=== PATIENT | male | born 1990 | race Caucasian/White ===

== ENCOUNTER 2022-05-15 01:41 | Inpatient (IN) | payer MEDICAID, SELFPAY ==
[2022-05-15] VITALS (37 sets, daily range): BP systolic 98–201; BP diastolic 48–96; PULSE 86–177; RESP 18–40; TEMP 34.8–38.9; O2SAT 82–999; BMI 24.6
--- NOTE | 2022-05-15 | ECG_ITS ---
Test Reason : sedation Blood Pressure : / mmHG Vent. Rate : 115 BPM Atrial Rate : 115 BPM P-R Int : 134 ms QRS Dur : 094 ms QT Int : 336 ms P-R-T Axes : 054 055 038 degrees QTc Int : 464 ms Sinus tachycardia Otherwise normal ECG No previous ECGs available Referred By: Anand Larson Electronically Signed By:ROBIN SALMON MD
--- NOTE | 2022-05-15 | ECG_ITS ---
Test Reason : st depression Blood Pressure : / mmHG Vent. Rate : 096 BPM Atrial Rate : 096 BPM P-R Int : 142 ms QRS Dur : 092 ms QT Int : 356 ms P-R-T Axes : 059 065 044 degrees QTc Int : 449 ms Normal sinus rhythm Normal ECG When compared with ECG of 15-MAY-2022 04:57, No significant change was found Referred By: Thu Lubin Electronically Signed By:ROBIN SALMON MD
--- NOTE | ~2022-05-15 | XR_ITS ---
EXAMINATION: XR CHEST CLINICAL INFORMATION: Low oxygen COMPARISON: None TECHNIQUE: Frontal view of the chest was obtained. FINDINGS: Lung volumes are symmetric. There is extensive consolidation throughout much of the right lung. Additional milder heterogeneous consolidation is present in the mid to upper left lung. There is relative sparing of the superior lung apices. No evidence of pneumothorax or pleural effusion. The cardiomediastinal contour is unremarkable. No acute osseous findings are seen. XR/XR chest 1V IMPRESSION: Bilateral airspace opacities, more extensive on the right than the left. Differential considerations include multifocal pneumonia, asymmetric edema, or extensive aspiration in the proper clinical setting.
--- NOTE | ~2022-05-15 | XR_ITS ---
EXAMINATION: XR CHEST CLINICAL INFORMATION: Endotracheal tube placement COMPARISON: None TECHNIQUE: Frontal view of the chest was obtained. FINDINGS: The endotracheal tube terminates 4 cm above the eleazar. The enteric tube extends into the stomach. The lungs are well expanded. Bilateral airspace opacities are present, right greater than left. No significant pleural effusion. No pneumothorax. The cardiomediastinal silhouette is within normal limits. XR/XR chest 1V IMPRESSION: 1. Endotracheal tube terminating 4 cm above the eleazar. 2. Bilateral airspace opacities, right greater than left. This is concerning for pneumonia.
--- NOTE | ~2022-05-15 | CT_ITS ---
EXAMINATION: CT HEAD WITHOUT CONTRAST CLINICAL INFORMATION: Unresponsiveness. COMPARISON: None TECHNIQUE: Contiguous axial imaging was performed from the skull base to vertex without intravenous administration of contrast. This CT examination was performed using dose optimization techniques as appropriate, variously including the following: *Automated exposure control *Adjustment of mA and/or kV according to patient size (this includes techniques or standardized protocols for targeted exams where dose is matched to indication/reason for exam; i.e. extremities or head) *Use of iterative reconstruction technique DLP: 637 mGy-cm FINDINGS: No intracranial hemorrhage, tumors or acute infarcts noted. The ventricles and sulci are normal in size and configuration. No focal parenchymal lesions or abnormal extra-axial fluid collections. Normal appearance of the orbits and globes. Mild opacification of scattered ethmoid air cells within expected limits of physiologic variation. No mastoid or middle ear cavity effusions identified. CT/CT head/brain wo IV con IMPRESSION: Normal unenhanced CT the head.
--- NOTE | ~2022-05-15 | XR_ITS ---
EXAMINATION: XR CHEST CLINICAL INFORMATION: Central line placement COMPARISON: Chest x-ray 05/15/2022 TECHNIQUE: Frontal portable view of the chest was obtained. 2:40 PM FINDINGS: Tubes and lines: 1. Endotracheal tube catheter tip 5 cm above the eleazar. 2. Left IJ catheter tip at caval atrial junction. 3. Nasogastric tube tip in stomach. Persistent patchy bilateral airspace opacities more extensive in the right lung than the left lung. No change since prior chest x-ray. No pneumothorax. No pleural effusion. XR/XR chest 1V IMPRESSION: 1. Endotracheal tube catheter tip 5 cm above the eleazar. 2. Left IJ catheter tip at caval atrial junction. 3. Nasogastric tube tip in stomach. 4. Persistent bilateral airspace disease.
[2022-05-15] MEDS: Haloperidol Lactate 5 MG/ML VIAL 10 MG IM (01:44)
[2022-05-15] MEDS: Midazolam HCl/PF 2 MG/2 ML VIAL 4 MG IM (01:44)
[2022-05-15] MEDS: diphenhydrAMINE HCL 50 MG/ML VIAL IM (01:44)
--- NOTE | 2022-05-15 02:39 | ED_ITS ---
HPI - Overdose General Chief Complaint: Overdose Stated Complaint: od Time Seen by Provider: 05/15/22 01:43 Source: EMS Mode of arrival: EMS Limitations: altered mental status History of Present Illness HPI Narrative: 31-year-old male initially presented as Samuel Butt who was found unresponsive on a sidewalk by police. According to the paramedics, initially the patient was given intranasal Narcan 8 mg and his respirations were assisted with a bag-valve mask. The pain she had in eventually woke up but was extremely agitated, he was unable to talk, he was fighting against the police and the paramedics. The pat ient had to be restrained and handcuffed to the stretcher for transport. The patient was bleeding from his mouth and was spitting frothy blood. When the patient arrived in the emergency department he was extremely agitated, he was nonverbal, he was fighting against the restraints. He was transferred to emergency department stretcher and placed in restraints. He was medicated with Haldol 50 mg, Benadryl 50 mg and Versed 4 mg IM with only minimal improvement of his agitation. The patient required a 2nd dose of these 3 medications again with minimal improvement. The patient was then noted to be hypoxic with O2 saturations in the 70% range. Patient was initially treated with nasal cannula an OxyMask however they were unable to get his O2 saturation above 85%. He was then tried on high-flow oxygen via nasal cannula but again we were unable to get his oxygen level above 85%. The patient became more agitated. He was then given ketamine 300 mg IM. He was moved into the resuscitation area and with then able to establish an IV. He was given etomidate 20 mg IV and rocuronium 40 mg IV. The patient was very difficult intubate secondary to significant amount of secretions in his p osterior pharynx. There are multiple unsuccessful attempts by me. The crystal gazer, was eventually able to intubate the patient with a 7.0 endotracheal tube, 24 at the lip. Patient was then placed on a propofol drip. His one-view chest x-ray is consistent with bilateral aspiration pneumonia, he was treated with Zosyn 4.5 g IV. Patient's lactic acid was 4.0 in the patient's CK was elevated at 1080. Patient was ordered to get a 30 cc per kg bolus of lactated Ringer's. Related Data Allergies Allergy/AdvReac Type Severity Reaction Status Date / Time No Known Allergies Allergy Unverified 05/15/22 01:43 Review of Systems Review of Systems: Yes Unobtainable due to mental status [facility] Past Medical History [facility] Narrative: Past medical, surgical and social history are unobtainable due the patient's altered mental status Social History Social History Advance Directives: No Physical Exam Vital Signs: Vital Signs: Last Vital Signs Resp 30 H 05/15/22 01:50 FiO2 100 05/15/22 03:45 BMI result Body Mass Index 24.6 Const: Other: Agitated male patient, patient has bleeding from his mouth from a tongue injury, he is not responding to verbal commands, he is trying to get off the stretcher. HEENT: Other: Patient has blood coming from his mouth, he is spitting and coughing Ears: external ears normal General nose exam: Normal external nose present Face and sinus: Yes normal facial exam Mouth: other (Blood coming from his mouth) Throat: Yes posterior oropharynx normal Eyes: General: appearance normal, both eyes and all related structures Neck: Neck: Yes normal visual inspection, Yes no lymphadenopathy, Yes trachea midline and Yes supple Chest: Chest palpation & inspection: normal inspection of the chest and normal palpation of entire chest wall Resp: Other: Diffuse rhonchi and rales right greater than left Cardio: Rate: regular rate Rhythm: regular rhythm Heart sounds: S1 normal heart sound present, S2 normal heart sound present and no murmurs GI: Inspection: Yes normal to inspection Palpation (GI): Soft to palpation, nontender and no guarding Auscultation: normal bowel sounds : General: Yes no CVA tenderness Back/Spine/Pelvis: Back: no CVA tenderness Neuro: Other: Patient is agitated, not responding to verbal commands. Extrem: Other: Moves all extremities Psych: Other: Extremely agitated, not responding to verbal stimuli Course Course Course Narrative: 31-year-old male patient found unresponsive on the sidewalk by police, patient needed bag-valve mask assistance with his respirations and did wake up after receiving intranasal Narcan 4 mg x2 doses. Patient was extremely agitated and was altered and required physical and chemical restraints x2 here in the emergency department. Patient was found to be hypoxic with O2 saturations on room air a 70%. The patient chest x-ray revealed bilateral infiltrates concerning for aspiration pneumonia. Attempted to treat the patient with high- flow oxygen via nasal cannula and was unable to improve the patient's O2 saturation above 85%. Therefore the patient was intubated and placed on a v entilator. Patient was treated with Zosyn 4.5 g IV. His lactic acid was 4.0 in his CK was elevated at 1080 and he was ordered to get lactated Ringer's 30 cc per mL bolus. Initially we were unable to get an ICU bed and I did discuss transfer this patient with [facility] transfer line and the patient was accepted at the [facility] however we were unable to arrange ALS transport and we are now are able to accept the patient here at this facility. MDM - Overdose Lab Data Result diagrams: 05/15/22 03:40 05/15/22 03:40 Labs: Lab Results 05/15/22 05/15/22 05/15/22 Range/Units 03:40 03:40 03:40 WBC 17.8 H (4.8-10.8) X10*3/uL RBC 4.96 (4.60-5.80) X10*6/uL Hgb 14.9 (14.0-18.0) g/dl Hct 45.8 (42.0-52.0) % MCV 92.3 (80.0-98.0) fL MCH 30.0 (27.0-33.0) pg MCHC 32.5 (31.0-36.0) g/dl RDW 11.7 (11.0-16.0) % Plt Count 309 (160-400) X10*3/uL MPV 11.8 (9.4-12.4) fL Immature Gran % (Auto) 0.8 H (0.0-0.4) % Neut % (Auto) 89.5 H (45-73) % Lymph % (Auto) 5.9 L (20-40) % Tillman % (Auto) 3.5 (2-11) % Eos % (Auto) 0.1 (0-4) % Baso % (Auto) 0.2 (0-2) % Lymph # (Auto) 1.1 L (1.2-4.9) X10*3/uL Tillman # (Auto) 0.6 (0.1-1.2) X10*3/uL Eos # (Auto) 0.0 (0.0-0.4) X10*3/uL Baso # (Auto) 0.0 (0.0-0.2) X10*3/uL Abs Immat Gran (auto) 0.14 H (0.00-0.03) X10*3/uL Absolute Neuts (auto) 15.9 H (2.0-8.3) x10*3/uL Absolute Nucleated RBC 0.000 (0.0-0.012) X10*3/uL Nucleated RBC % (auto) 0.0 (0.0-0.2) /100WBC Sodium 141 (135-145) mmol/L Potassium 4.3 (3.3-5.1) mmol/L Chloride 102 (96-108) mmol/L Carbon Dioxide 23 (22-29) mmol/L Anion Gap 20 (12-20) BUN 17 H (9-16) mg/dL Creatinine 1.39 (0.5-1.4) mg/dL Estim Creat Clear Calc 79.5 Estimated GFR 60 Random Glucose 87 (60-115) mg/dL Lactic Acid 4.0 H* (0.5-2.0) mmol/L Calcium 9.4 (8.4-10.2) mg/dL Total Bilirubin 0.4 (0.0-1.0) mg/dL AST 59 H (5-37) U/L ALT 29 (0-40) U/L Alkaline Phosphatase 74 (39-117) U/L Total Creatine Kinase 1084 H (38-174) U/L Total Protein 7.5 (6.5-8.0) g/dL Albumin 3.9 (3.5-5.0) g/dL Ethyl Alcohol < 10 mg/dL Critical Care Time Critical Care Time Critical Care Time: Yes Total Critical Care Time: 75 Attestation: Critical Care: The patient was critically ill with a high probability of imminent or life threatening deterioration. I spent greater than 30 minutes of discontinuous time evaluating the patient,delivering critical care at the bedside, discussing and evaluating pertinent data with consultants. Critical care time does not include time spent performing separately billable procedures or teaching. Total time spent performing critical care was 75 minutes. Discharge Plan Discharge Clinical Impression: Opiate overdose, Aspiration pneumonia, Respiratory failure Patient Disposition: Admitted As Inpatient
[2022-05-15] MEDS: Haloperidol Lactate 5 MG/ML VIAL IM (02:50)
[2022-05-15] MEDS: Midazolam HCl/PF 2 MG/2 ML VIAL IM (02:58)
[2022-05-15] MEDS: Ketamine HCl 500 MG/5 ML VIAL 300 MG IM (03:08)
[2022-05-15] MEDS: Etomidate 20 MG/10 ML VIAL IVPUSH (03:12)
[2022-05-15] MEDS: Rocuronium Bromide 50 MG/5 ML VIAL 40 MG IVPUSH ×3 (03:13→12:46)
[2022-05-15] MEDS: 0.9 % Sodium Chloride 1,000 ML 999 ML IV (03:16)
[2022-05-15 03:53] LABS: MANUAL DIFF FLAG NO
[2022-05-15 03:57] LABS: Basophils Percent Auto 0.2 % (0-2); Eosinophils Percent Auto 0.1 % (0-4); Hematocrit 45.8 % (42.0-52.0); Hemoglobin 14.9 g/dl (14.0-18.0); Imm Gran Abs Auto 0.14 X10*3/uL (0.00-0.03); Imm Gran Pct Auto 0.8 % (0.0-0.4); Lymphocytes Absolute Auto 1.1 X10*3/uL (1.2-4.9); Lymphocytes Percent Auto 5.9 % (20-40); Mean Corpuscular HGB Conc 32.5 g/dl (31.0-36.0); Mean Corpuscular Volume 92.3 fL (80.0-98.0); Mean Platelet Volume 11.8 fL (9.4-12.4); Monocytes Absolute Auto 0.6 X10*3/uL (0.1-1.2); Monocytes Percent Auto 3.5 % (2-11); Neutrophils Absolute Auto 15.9 x10*3/uL (2.0-8.3); Neutrophils Percent Auto 89.5 % (45-73); Platelet Count 309 X10*3/uL (160-400); Red Blood Count 4.96 X10*6/uL (4.60-5.80); Red Cell Distribution Width 11.7 % (11.0-16.0); White Blood Count 17.8 X10*3/uL (4.8-10.8)
[2022-05-15] MEDS: propofoL 1,000 MG/100 ML VIAL 14 MG IVCONT (03:59)
--- NOTE | 2022-05-15 04:04 | PC.NURSE ---
[facility]'s transfer line called at [phone] per spoke with Fernanda she stated they are closed to ICU transfers. Natasha called at [phone] spoke with Dayna they are closed to ICU transfers. Janay called at [phone] spoke with Junie they are closed toICU transfers. Fransisco called at [phone],gave patient demographics, speaking with at this time,Faxed demographics per request awaiting a call back at this time.
--- NOTE | 2022-05-15 04:10 | PC.NURSE ---
Pt came in combative and aggressive. Not a&o, unable follow command . Pt began to desat. respiratory called, several attempt to get an IV line. pt continue to combative and aggressive. Pt restrained and medicated. pt moved from room 22 to room 5. Notes: 2:58am 2mg of Versed and 10mg of Haldol IM 03:08am Ketamine 300mg IM 03:12am Etomidate 20mh=g 03:13am Rocuronium 40mg 03:15am poc 106 03:16am one liter of normal saline 03:19am Propfol started 5mcq/kg/min then increased to 30mcq Pt was a difficult intubation. Were able to intubate pt at 03:28am at 24 at the lip ETT size 7
[2022-05-15 04:26] LABS: Alanine Aminotransferase 29 U/L (0-40); Albumin Level 3.9 g/dL (3.5-5.0); Alkaline Phosphatase 74 U/L (39-117); Anion Gap 20 (12-20); Aspartate Amino Transferase 59 U/L (5-37); Bilirubin Total 0.4 mg/dL (0.0-1.0); Blood Urea Nitrogen 17 mg/dL (9-16); Calcium 9.4 mg/dL (8.4-10.2); Carbon Dioxide 23 mmol/L (22-29); Chloride 102 mmol/L (96-108); Creatinine Clr Calc Pharmacy 79.5; Estimated Glomerular Filt Rate 60; Ethanol < 10 mg/dL; Glucose Random 87 mg/dL (60-115); Potassium 4.3 mmol/L (3.3-5.1); Sodium 141 mmol/L (135-145); Total Protein 7.5 g/dL (6.5-8.0)
[2022-05-15 04:36] LABS: ABG Base Excess 2.6 mmol/L; ABG HCO3 28 mmol/L (22-26); ABG pCO2 47 mmHg (32-45); ABG pH 7.38 (7.35-7.45); ABG pO2 89 mmHg (83-108)
--- NOTE | 2022-05-15 04:37 | PC.NURSE ---
Fransisco called at 0431 speaking with Neo Slaughter at this time.
[2022-05-15 04:41] LABS: Influenza A PCR NEGATIVE (Negative); Influenza B PCR NEGATIVE (Negative); Resp Syncy Virus RNA Qual PCR NEGATIVE (Negative); SARS COV2 PCR INHOUSE NEGATIVE (Negative)
[2022-05-15] MEDS: Acetaminophen Supp 650 MG SUPP.RECT PR (04:48)
[2022-05-15 05:15] LABS: Amphetamine Screen Urine Not Detected (Not Detect); Barbiturates, Urine Not Detected (Not Detect); Benzodiazepines Screen Urine POSITIVE (Not Detect); Cannabinoid Screen Urine POSITIVE (Not Detect); Cocaine Screen Urine POSITIVE (Not Detect); Fentanyl, urine POSITIVE (Not Detect); Opiate Screen Urine POSITIVE (Not Detect); Phencyclidine Screen Urine Not Detected (Not Detect)
[2022-05-15] MEDS: Piperacillin Sodium/Tazobactam 4.5 GM in 0.9 % Sodium Chloride 100 ML IV (05:28)
[2022-05-15 05:43] LABS: Glucose, Whole Blood 106 mg/dL (60-115)
--- NOTE | 2022-05-15 05:54 | PM.CCHP ---
History of Present Illness Date of Service: 05/15/22 Attending physician on admission: Rosa Baires Chief Complaint: Found unresponsive then developed agitated delirium 31-year-old male found unresponsive in the street became partially responsive but with a agitated delirium and combativeness after receiving Narcan and ultimately toxicology screen revealed cocaine opiates and fentanyl and very significant the hyperdense bilateral infiltrates right greater than left possible aspiration possible cocaine lung toxicity with potential alveolar hemorrhage and of course I intubated him without complications at rather rapidly and the patient remains in sinus tachycardia without acute ST change positive CP is CPK which I am sure is is rhabdomyolysis febrile to 101.5 tachycardic to 126 with marginal blood pressure of 106/48 evidence of lactic acidosis but compensated pH and currently nonoliguric no external sign of head trauma but that has to be assumed so I think CT of the head is going to be merited until such time with definite going to hold off on any DVT prophylaxis continue to treat as a presumed aspiration had already been initiated on Zosyn in the emergency room and a course so remain on propofol sedation with possible addition if he breaks through with potentially Versed drip as an adjunct and ventilator support until his assess cognitive function is restored Review of Systems Review of Systems: Yes Unobtainable due to mental status PMFSH Social History Social History Advance Directives: No Meds Allergies Allergy/AdvReac Type Severity Reaction Status Date / Time No Known Allergies Allergy Unverified 05/15/22 01:43 Active Medications: Current Medications Chlorhexidine Gluconate (Chlorhexidine Gluc Oral Rinse 15 Ml Mouthwash) 15 ml BUCCAL Q8H BUTCH Propofol (Diprivan) 1,000 mg in 100 mls @ 0 mls/hr IVCONT .Q0M [facility]; Protocol Last Titration: 05/15/22 04:33 Dose: 35 mcg/kg/min, 16.34 mls/hr Dextrose/Lactated Ringer's (D5lr) 1,000 mls @ 100 mls/hr IVCONT .Q10H BUTCH Pantoprazole Sodium 40 mg/ (Sodium Chloride) 110 mls @ 400 mls/hr IV DAILY@0630 BUTCH Propofol (Diprivan) 1,000 mg in 100 mls @ 0 mls/hr IVCONT .Q0M [facility]; Protocol Home Medications Medication Instructions Recorded Confirmed Last Taken Type No Known Home Meds 05/15/22 05/15/22 Unknown History Physical Exam Vital Signs: Vital Signs: Last Vital Signs Temp 101.5 F H 05/15/22 05:47 Pulse 126 H 05/15/22 05:47 Resp 20 05/15/22 05:47 BP 106/48 L 05/15/22 05:47 Pulse Ox 98 05/15/22 05:47 O2 Del Method 05/15/22 05:47 O2 Flow Rate 15 05/15/22 02:30 FiO2 100 05/15/22 03:45 BMI result Body Mass Index 24.6 Bedside echo with approximately 50% ejection fraction minimal if any diffuse hypokinesis of the ventricle but no segmental wall motion abnormality most especially septum and apex and no right ventricular disease no primary valve disease Abdomen soft no organomegaly Probable right lung aspiration and/or alveolar hemorrhage problem related to the cocaine toxicity Febrile to a peak of 102.7 with what appears to be a evidence of of seizure activity but II could not rule out the possibility with the posturing of a neuroleptic malignant reaction to the Haldol that he had been given by the ER about 9 hours earlier but he is already treated with propofol and we added 12 mg of IV Versed and then we ventrally had to give him rocuronium is to stop the reaction treated the fever with with acetaminophen and ice packs And I checked his CPK and LDH CPK is flat at 12:00 LDH is is barely upper limits so I do not believe that we have anything severe enough here to require something like a dantrolene He has track contreras and mend multiple scabbed over wounds on his scan always leaving concerned for unsterile injection technique Results Labs CBC and Chem 7: 05/15/22 03:40 05/15/22 03:40 Labs: Laboratory Results - last 24 hr 05/15/22 05/15/22 05/15/22 03:15 03:40 03:40 MCV 92.3 MCH 30.0 MCHC 32.5 RDW 11.7 Plt Count 309 MPV 11.8 Immature Gran % (Auto) 0.8 H Neut % (Auto) 89.5 H Lymph % (Auto) 5.9 L Casey % (Auto) 3.5 Eos % (Auto) 0.1 Baso % (Auto) 0.2 Lymph # (Auto) 1.1 L Casey # (Auto) 0.6 Eos # (Auto) 0.0 Baso # (Auto) 0.0 Abs Immat Gran (auto) 0.14 H Absolute Neuts (auto) 15.9 H Absolute Nucleated RBC 0.000 Nucleated RBC % (auto) 0.0 O2 Saturation ABG pH at Pt Temp ABG pCO2 at Pt Temp ABG pO2 at Pt Temp ABG HCO3 ABG Base Excess (Actual) Anion Gap 20 Estim Creat Clear Calc 79.5 Estimated GFR 60 POC Glucose 106 Random Glucose 87 Lactic Acid Calcium 9.4 Total Bilirubin 0.4 AST 59 H ALT 29 Alkaline Phosphatase 74 Total Creatine Kinase 1084 H Total Protein 7.5 Albumin 3.9 Urine Opiates Screen Urine Fentanyl Screen Ur Barbiturates Screen Ur Phencyclidine Scrn Ur Amphetamines Screen U Benzodiazepines Scrn Urine Cocaine Screen U Marijuana (THC) Screen Ethyl Alcohol < 10 Influenza Type A (PCR) Influenza Type B (PCR) RSV RNA Qual (PCR) SARS-CoV-2 RNA (RT-PCR) 05/15/22 05/15/22 05/15/22 03:40 03:40 04:30 MCV MCH MCHC RDW Plt Count MPV Immature Gran % (Auto) Neut % (Auto) Lymph % (Auto) Casey % (Auto) Eos % (Auto) Baso % (Auto) Lymph # (Auto) Casey # (Auto) Eos # (Auto) Baso # (Auto) Abs Immat Gran (auto) Absolute Neuts (auto) Absolute Nucleated RBC Nucleated RBC % (auto) O2 Saturation 97.0 ABG pH at Pt Temp 7.38 ABG pCO2 at Pt Temp 47 H ABG pO2 at Pt Temp 89 ABG HCO3 28 H ABG Base Excess (Actual) 2.6 Anion Gap Estim Creat Clear Calc Estimated GFR POC Glucose Random Glucose Lactic Acid 4.0 H* Calcium Total Bilirubin AST ALT Alkaline Phosphatase Total Creatine Kinase Total Protein Albumin Urine Opiates Screen Urine Fentanyl Screen Ur Barbiturates Screen Ur Phencyclidine Scrn Ur Amphetamines Screen U Benzodiazepines Scrn Urine Cocaine Screen U Marijuana (THC) Screen Ethyl Alcohol Influenza Type A (PCR) NEGATIVE Influenza Type B (PCR) NEGATIVE RSV RNA Qual (PCR) NEGATIVE SARS-CoV-2 RNA (RT-PCR) NEGATIVE 05/15/22 04:48 MCV MCH MCHC RDW Plt Count MPV Immature Gran % (Auto) Neut % (Auto) Lymph % (Auto) Casey % (Auto) Eos % (Auto) Baso % (Auto) Lymph # (Auto) Casey # (Auto) Eos # (Auto) Baso # (Auto) Abs Immat Gran (auto) Absolute Neuts (auto) Absolute Nucleated RBC Nucleated RBC % (auto) O2 Saturation ABG pH at Pt Temp ABG pCO2 at Pt Temp ABG pO2 at Pt Temp ABG HCO3 ABG Base Excess (Actual) Anion Gap Estim Creat Clear Calc Estimated GFR POC Glucose Random Glucose Lactic Acid Calcium Total Bilirubin AST ALT Alkaline Phosphatase Total Creatine Kinase Total Protein Albumin Urine Opiates Screen POSITIVE H Urine Fentanyl Screen POSITIVE H Ur Barbiturates Screen Not Detected Ur Phencyclidine Scrn Not Detected Ur Amphetamines Screen Not Detected U Benzodiazepines Scrn POSITIVE H Urine Cocaine Screen POSITIVE H U Marijuana (THC) Screen POSITIVE H Ethyl Alcohol Influenza Type A (PCR) Influenza Type B (PCR) RSV RNA Qual (PCR) SARS-CoV-2 RNA (RT-PCR) Imaging Radiologist's Impressions: Impressions Chest X-Ray 05/15/22 02:35 IMPRESSION: Bilateral airspace opacities, more extensive on the right than the left. Differential considerations include multifocal pneumonia, asymmetric edema, or extensive aspiration in the proper clinical setting. Assessment and Plan (1) Opiate overdose: Status: Acute (2) Aspiration pneumonia: Status: Acute (3) Respiratory failure: Status: Acute (4) Acute hypoxemic respiratory failure: Status: Acute (5) Pulmonary alveolar hemorrhage: Status: Acute (6) Cocaine abuse: Status: Acute (7) Toxic encephalopathy: Status: Acute (8) Myocarditis determined by echocardiography: Status: Acute Plan Most of his toxicity I believe stems from the cocaine including this pulmonary alveolar hemorrhage with acute hypoxemic respiratory failure in the even the the seizures which could easily represent withdrawal but again could represent a toxic encephalopathy again related to the cocaine and has got mild diffuse myocardial injury with about a 50% ejection fraction but no segmental wall motion abnormality so it is not an acute coronary syndrome So will maintain both the Versed and propofol drips in and the ventilator maintenance and I am going to cover him for his injection IV of these drugs with vancomycin and meropenem for tonight continue his IV fluids
[2022-05-15 06:03] LABS: Reflex Lactate? Lactic Acid Added
--- NOTE | 2022-05-15 06:41 | PC.NURSE ---
Addendum entered by Azucena Hodges RN 05/15/22 06:51: Per respiratory, profol titrated to 50 mcg/kg/hr. Addendum entered by Azucena Hodges RN 05/15/22 06:48: Propofol increased to 45 mcg/hr. Original order is discontinued. Original Note: Pt began to wake up. HR 107, O2 dropped to 86%. Respiratory called, pt suctioned, releasing thick blood-tinged sputum through the ET tube. Pt medicated for vent control, reacting well and staying sedated.
[2022-05-15] MEDS: propofoL 1,000 MG/100 ML VIAL 23.34 MG IVCONT ×5 (06:53→19:15)
--- NOTE | 2022-05-15 07:00 | CA_ITS ---
Transthoracic Echocardiogram Patient (Last, First, Middle): Clifford Aragon, Gender: Male Date of : 1990 Age: 31 Procedure Date: 05/15/2022 Procedure Type: Transthoracic Echocardiogram Location: ICU Height: 177.8 cm Weight: 77.57 kg BSA: 1.95 m2 Heart Rate: 83 bpm BP: 102 / 60 mmHg Workers Compensation Claims Examiner: COLUMBA Referring MD: Rosa Baires MD Symptoms: fever-injection drug abuse Study Quality: Technically Difficult/Contrast ECG Rhythm: Sinus Conclusions: - The left ventricular systolic function is mild to moderately decreased. The visually estimated ejection fraction is between 40-45%. - There is moderately decreased right ventricular systolic function. - No obvious valvular pathology seen on this study. Findings Procedure Information Contrast agent, definity, is being given per protocol without apparent complications. Left Ventricle Normal left ventricular cavity size. There is normal left ventricular wall thickness. The left ventricular systolic function is mild to moderately decreased. The visually estimated ejection fraction is between 40-45%. There is moderate global hypokinesis. Diastolic function is indeterminate on the basis of available data. Right Ventricle Normal right ventricular cavity size. There is moderately decreased right ventricular systolic function. Atria Both atria are normal in size. Aortic Valve The aortic valve was not well visualized. There is no aortic valve stenosis. There is no aortic valve regurgitation. Mitral Valve The mitral valve appears normal. There is no mitral valve regurgitation. There is no mitral valve stenosis. Pulmonic Valve The pulmonic valve is likely normal. Tricuspid Valve Normal tricuspid valve structure. There is trace tricuspid valve regurgitation. The right ventricular systolic pressure is not calculated. Great Vessels The asc aorta is normal in size. Venous The inferior vena cava is normal in size and does not collapse with inspiration. (intubated). Pericardium/Pleural There is no evidence of pericardial effusion. Prior Study Comparison No prior study available for comparison. Recommendations, Care & Conclusions No obvious valvular pathology seen on this study. Measurements 2D Linear Measurements IVSd: 0.71 0.6-0.9/0.6-1.0 cm LVIDd: 4.09 3.9-5.3/4.2-5.9 cm LVIDd Index: 2.10 2.4-3.2/2.2-3.1 cm/m2 LVIDs: 3.03 2.0-3.6 cm LVPWd: 0.79 0.7-1.1 cm LA Diam: 2.30 2.7-3.8/3.0-4.0 cm LAIDs Index: 1.18 1.5-2.3 cm/m2 LV Mass: 110.70 67-162/88-224 g LV Mass Index: 56.77 43-95/49-115 g/m2 LVOT Diam: 1.90 3.0+(-)1.3 cm 2D Systolic Function EF 4C: 71.20 >55% EF 2C: 49.90 >55% Mitral Valve MV Pk E: 0.58 MV PK A: 0.55 MV Decel Time: 191.00 E/A: 1.10 E'Lateral: 10.00 E'Medial: 7.07 E/E' Med: 8.20 E/E' Lat: 5.80 PHT: 56.00 MVA PHT: 3.93 Decel [place]: 3.03 Aortic Valve AoV Pk Josh: 1.07 AoV Mn Josh: 0.79 AoV VTI: 0.17 AoV Pk Grad: 5.00 Aov Mn Grad: 3.00 SHERIN Cont.VTI: 1.96 LVOT LVOT Pk Josh: 0.75 LVOT Mn Josh: 0.53 LVOT VTI: 0.12 LVOT Pk Grad: 2.00 LVOT Mn Grad: 1.00 LVOT Diam: 1.90 LVOT Area: 2.84 Diastolic Function MV Pk E: 0.58 MV Pk A: 0.55 E/A: 1.10 E'Medial: 7.07 E/E' Med: 8.20 E' Laterial: 10.00 E/E' Lat: 5.80 Right Ventricle TAPSE (mm): 11.00 TVS' Josh: 6.42 Tricuspid Valve RA Press: 8.00 Great Vessels Aorta Sinus of Valsalva: 3.30 2.0-3.5 cm Pulmonary Valve PV Pk Josh: 0.71 Peak PV Grad: 2.00 Updated in Other Vendor System with Status of Final Bijan Rosado MD electronically signed on 05/15/2022 3:24:30 PM with status of Final
[2022-05-15] MEDS: Dextrose 5 % and Lactated Ring 1,000 ML 100 ML IVCONT ×2 (08:00→17:04)
[2022-05-15] MEDS: Chlorhexidine Gluc Oral Rinse 15 ML MOUTHWASH BUCCAL ×3 (08:08→19:53)
[2022-05-15] MEDS: Pantoprazole Sodium 40 MG in 0.9 % Sodium Chloride 100 ML 400 MG IV (08:08)
--- NOTE | 2022-05-15 08:20 | PC.NURSE ---
Addendum entered by Bobby Raphael RN 05/15/22 15:46: pt diaphoretic w/ beads of sweat on forehead, informed Addendum entered by Bobby Raphael RN 05/15/22 13:51: ice packs in place d/t pt's temp. Addendum entered by Bobby Raphael RN 05/15/22 12:56: pt has icnreased amount of pink frothy sputum from ETT Addendum entered by Bobby Raphael RN 05/15/22 12:51: This afternoon during suction and repositioning, pt was tremulous body wide, began to sit up, cough and gag on ETT along w/ increased HR, pupils dilated to size 5, increased RR and desat to 70s. informed and assessed pt at bedside. Meds were administered emergently per md verbal order w/ + effect post IVP Migue. Core temp increased to 103. Addendum entered by Bobby Raphael RN 05/15/22 10:03: informed of critical trop Original Note: Report taken from previous shift rn. Pt arrived from ED post CT, team at bedside. informed XR was not obtained for ETT placement. OGT and ETT confirmed by MD at bedside post XR. Informned Mf of pt's temp, no new orders at this time. Fluids and prop running as ordered. Nathan in place. Pt bathed this shift.
[2022-05-15 08:21] LABS: ~Lactic Acid-LAB USE ONLY 0.8 mmol/L (0.5-2.0)
[2022-05-15 10:02] LABS: Troponin-I High Sensitivity 166.7 ng/L (<3.5-35.0)
[2022-05-15 10:07] LABS: HBS Num1 > 1000.00 mIU/mL (0-7.99); HBsAGNum1 0.22 S/CO (0.00-0.99); HIV AB/AG Nonreactive (Nonreactive); HIV Num 1 0.08 S/CO (0.00-0.99); Hepatitis B Core Antibody Nonreactive (Nonreactive); Hepatitis B Surface Antigen Negative (Negative); ~HepC Num1 15.98 S/CO (0.00-0.79); ~Hepatitis B Surface Antibody REACTIVE (Nonreactive); ~Hepatitis C Antibody Reactive (Nonreactive)
[2022-05-15 10:23] LABS: ABG Refer to POC result
[2022-05-15 10:57] LABS: Troponin-I High Sensitivity 180.8 ng/L (<3.5-35.0)
--- NOTE | 2022-05-15 11:02 | MHC.CM.PN ---
Pt currently intubated and unable to participate in CM assessment. Pt brought to ED by [facility] in an obtunded state - found to have a positive tox screen and possible aspiration pneumonia. Contact number in EMR called: person who answered stated wrong number. Pt has a cell phone in his belongings: ICU will charge and attempt to find contact. CM to follow for finalization of d/c planning needs.
[2022-05-15] MEDS: Midazolam HCl/PF 2 MG/2 ML VIAL 4 MG IVPUSH ×3 (12:31→12:46)
[2022-05-15] MEDS: levETIRAcetam in NaCl (iso-os) 1,000 MG/100 ML PIGGYBACK 400 MG IV (12:32)
[2022-05-15] MEDS: Midazolam HCl/NS 50 MG/50 ML PLAST..BAG IVCONT ×2 (12:35→19:52)
--- NOTE | 2022-05-15 12:46 | PHA.MEDREC ---
Pharmacy Consult ? Medication Reconciliation Pharmacy has completed the medication reconciliation.
--- NOTE | 2022-05-15 13:50 | P.PCNCC_ITS ---
Procedures Date of Service Date of Service: 05/15/22 Intubation Intubation Comments: Agitated delirium with known aspiration following cocaine intoxication it and requiring emergent airway protection utilizing glide scope visualization with excellent visualization of the vocal cords easy none intubation of accomplish without any evidence of of aspiration with excellent end-tidal CO2 response and good bilateral breath sounds and secured at the at the lip with post operative chest x-ray showing no barotrauma and the tip of the tube was located 2.5 cm above the eleazar Time out performed: Yes Paralytic: rocuronium Laryngoscope: fiber optic video scope ET tube size: 7.5 ET tube uncuffed: No Tube secured depth (cm): 23 Tube placement confirmation: visualized tube passing through cords, equal breath sounds bilaterally, no breath sounds over epigastrium and confirmation by capnom etry Patient tolerated procedure: well and no complications Intubation complications: none
[2022-05-15 13:56] LABS: Lactate Dehydrogenase 239 U/L (118-273)
[2022-05-15] MEDS: Acetaminophen 1,000 MG/100 ML PIGGYBACK 400 MG IV (14:18)
--- NOTE | 2022-05-15 14:44 | W.PM.CCHP ---
Procedures Date of Service Date of Service: 05/15/22 Central Line Placement Left IJ: Central Line Comments: PROCEDURE: ? ? Insertion left internal jugular triple-lumen central venous catheter. INDICATION: ? ?Venous access, CVP monitoring. ANESTHESIA: ? Propofol infusion. PROCEDURE: Vascular ultrasound was used to examine the left neck. A large compressible internal jugular vein was noted, lateral to the carotid artery.? Site of the vein was marked. The left neck was widely prepped and draped in full sterile fashion.?Under US?guidance, the left IJ vein was cannulated on the 1st pass of the 18 g thin wall needle, with return of dark, nonpulsatile blood. ? The wire was threaded without incident.?The 20 cm x 7 [place] triple-lumen CVC was advanced into the vein up to the hub via the Seldinger technique without incident.?There was good blood return x3.?The catheter was sutured x2 and a Biopatch and dry sterile dressing were applied. Postop chest x-ray showed the line in good position with no pneumothorax.? The patient tolerated the procedure well with no complications. Consent for Procedure: Emergent-no informed consent obtained (Altered mental status) Time out performed: Yes Sterile Technique Used: Yes Patient placed on monitor/pulse ox: Yes MD prep: mask, gown and gloves Central line prep: Chlorhexidine scrub and sterile drapes applied Ultrasound used for placement: Yes Central line lumen inserted: triple Post procedure: sutured in place, good blood return, all ports aspirated, flushed, capped and sterile dressing applied Post procedure x-ray: tip of catheter in good position and no pneumothorax seen Patient tolerated procedure: well and no complications Complications: none
[2022-05-15 14:50] LABS: Glucose, Whole Blood 93 mg/dL (60-115)
[2022-05-15] MEDS: vancomycin HCL 1,500 MG in 0.9 % Sodium Chloride 500 ML 333.33 MG IV (17:41)
[2022-05-16] VITALS (29 sets, daily range): BP systolic 122–156; BP diastolic 65–101; PULSE 76–112; RESP 13–26; TEMP 34.6–39.2; O2SAT 95–100; BMI 24.3
[2022-05-16] MEDS: propofoL 1,000 MG/100 ML VIAL 23.34 MG IVCONT ×7 (02:52→22:34)
[2022-05-16] MEDS: Dextrose 5 % and Lactated Ring 1,000 ML 100 ML IVCONT ×3 (03:05→22:34)
[2022-05-16 05:24] LABS: MANUAL DIFF FLAG NO
[2022-05-16 05:28] LABS: VBG Base Excess 7.3 mmol/L; VBG HCO3 30 mmol/L (22-26); VBG pCO2 37 mmHg; VBG pH 7.51 (7.32-7.43); VBG pO2 78 mmHg
[2022-05-16 05:29] LABS: Venous Blood Gas Refer to POC result
[2022-05-16 05:31] LABS: Basophils Percent Auto 0.3 % (0-2); Eosinophils Absolute Auto 0.1 X10*3/uL (0.0-0.4); Eosinophils Percent Auto 1.2 % (0-4); Hematocrit 36.3 % (42.0-52.0); Hemoglobin 11.7 g/dl (14.0-18.0); Imm Gran Abs Auto 0.04 X10*3/uL (0.00-0.03); Imm Gran Pct Auto 0.4 % (0.0-0.4); Lymphocytes Absolute Auto 1.4 X10*3/uL (1.2-4.9); Mean Corpuscular HGB Conc 32.2 g/dl (31.0-36.0); Mean Corpuscular Hemoglobin 29.5 pg (27.0-33.0); Mean Corpuscular Volume 91.4 fL (80.0-98.0); Monocytes Absolute Auto 0.5 X10*3/uL (0.1-1.2); Monocytes Percent Auto 5.2 % (2-11); Neutrophils Percent Auto 78.9 % (45-73); Platelet Count 178 X10*3/uL (160-400); Red Blood Count 3.97 X10*6/uL (4.60-5.80); Red Cell Distribution Width 11.9 % (11.0-16.0); White Blood Count 10.2 X10*3/uL (4.8-10.8)
[2022-05-16 05:53] LABS: Anion Gap 12 (12-20); Blood Urea Nitrogen 11 mg/dL (9-16); Calcium 8.3 mg/dL (8.4-10.2); Carbon Dioxide 25 mmol/L (22-29); Chloride 108 mmol/L (96-108); Creatinine Clr Calc Pharmacy 111.6; Estimated Glomerular Filt Rate > 60; Glucose Random 98 mg/dL (60-115); Magnesium 2.1 mg/dL (1.6-2.6); Phosphorus 1.6 mg/dL (2.7-4.5); Potassium 3.9 mmol/L (3.3-5.1); Sodium 141 mmol/L (135-145)
[2022-05-16] MEDS: Pantoprazole Sodium 40 MG in 0.9 % Sodium Chloride 100 ML 400 MG IV (06:24)
[2022-05-16] MEDS: Chlorhexidine Gluc Oral Rinse 15 ML MOUTHWASH BUCCAL ×3 (06:24→22:34)
--- NOTE | 2022-05-16 07:13 | PC.NURSE ---
Agitated often, especially with nursing care such as oral care. Patient with temp, Tmax 102.6, discussed with Dr. Stanton, no need for tylenol unless T reaches 103. Patient grew very restless with sitting up repeatedly and pulling at restraints and ventilator dyssynchrony with downtitration of the propofol to 45, and this was titrated back up in response.
[2022-05-16 07:32] LABS: Hepatitis A Antibody IgM 0.26 Index (0-0.79); ~Hepatitis A Antibody IgM Nonreactive (Nonreactive)
[2022-05-16] MEDS: Midazolam HCl/NS 50 MG/50 ML PLAST..BAG IVCONT ×2 (09:05→21:10)
--- NOTE | 2022-05-16 11:09 | MHC.CLN ---
F/U PT REMAINS INTUBATED AND SEDATED CURRENTLY NPO DISCUSSED WITH NURSE, GERMAINE AND PT TO START TF RECOMMEND JEVITY 1. AT MAX GOAL RATE 55ML/HR WITH 240ML FREE WATER FLUSHES Q 6HRS TO PROVIDE 1400KCALS (2016KCALS WITH SEDATION; 26KCALS/KG), 58G PROTEIN (.7G/KG), 2062ML TOTAL FREE WATER FROM FORMULA AND FLUSHES (26ML/KG) START FORMULA AT 20ML/HR AND INCREASE BY 10ML Q 4 HRS UNTIL MAX GOAL IS ACHIEVED MONITOR TOLERANCE, RESIDUALS AND LYTES
--- NOTE | 2022-05-16 13:32 | PM.CCPN ---
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 and mild diffuse hypokinesis of the left ventricle and elevated temperature spikes min greater than 102 currently with cultures pending HIV and is negative but he is positive for hepatitis-B and C He remains sedated and intubated periodically breaking through but the certainly without restored cognitive function still remains clinically delirious but will attempt a a slow sedation holiday in the morning again to evaluate for cognitive function and a ventilator weaning trial will follow if cognitive function seems to be restoring Cultures thus far remain negative so where withholding antibiotics for now Critical Care Time (minutes): 45 Physical Exam Vital Signs: Vital Signs: Last Vital Signs Temp 100.6 F H 05/16/22 12:00 Pulse 100 05/16/22 13:00 Resp 18 05/16/22 13:00 BP 135/84 05/16/22 13:00 Pulse Ox 98 05/16/22 13:00 O2 Del Method 05/16/22 13:00 O2 Flow Rate 15 05/15/22 02:30 FiO2 40 05/16/22 13:00 BMI result Body Mass Index 24.3 Sedated and intubated with periodic agitated breakthrough Abdomen soft and tolerating feedings no organomegaly Bedside echo proximally 50% ejection fraction without segmental wall motion abnormality Lungs without adventitious sounds and FiO2 has been weaned to 30% Skin without acrocyanosis without livedo and without cellulitis Objective Data Labs CBC & Chem 7: 05/16/22 05:07 05/16/22 05:07 Labs: Laboratory Results - last 24 hr 05/15/22 05/15/22 05/15/22 03:40 13:31 14:47 WBC RBC Hgb Hct MCV MCH MCHC RDW Plt Count MPV Immature Gran % (Auto) Neut % (Auto) Lymph % (Auto) [place] % (Auto) Eos % (Auto) Baso % (Auto) Lymph # (Auto) [place] # (Auto) Eos # (Auto) Baso # (Auto) Abs Immat Gran (auto) Absolute Neuts (auto) Absolute Nucleated RBC Nucleated RBC % (auto) VBG pH VBG pCO2 VBG pO2 VBG HCO3 VBG O2 Saturation VBG Base Excess Sodium Potassium Chloride Carbon Dioxide Anion Gap BUN Creatinine Estim Creat Clear Calc Estimated GFR POC Glucose 93 Random Glucose Calcium Phosphorus Magnesium Lactate Dehydrogenase 239 Total Creatine Kinase 1216 H Troponin I High Sens Albumin Hepatitis A IgM Ab Nonreactive 05/15/22 05/16/22 05/16/22 23:54 05:07 05:07 WBC 10.2 RBC 3.97 L Hgb 11.7 L D Hct 36.3 L D MCV 91.4 MCH 29.5 MCHC 32.2 RDW 11.9 Plt Count 178 D MPV 12.0 Immature Gran % (Auto) 0.4 Neut % (Auto) 78.9 H Lymph % (Auto) 14.0 L [place] % (Auto) 5.2 Eos % (Auto) 1.2 Baso % (Auto) 0.3 Lymph # (Auto) 1.4 [place] # (Auto) 0.5 Eos # (Auto) 0.1 Baso # (Auto) 0.0 Abs Immat Gran (auto) 0.04 H Absolute Neuts (auto) 8.0 Absolute Nucleated RBC 0.000 Nucleated RBC % (auto) 0.0 VBG pH VBG pCO2 VBG pO2 VBG HCO3 VBG O2 Saturation VBG Base Excess Sodium 141 Potassium 3.9 Chloride 108 Carbon Dioxide 25 Anion Gap 12 BUN 11 Creatinine 0.99 Estim Creat Clear Calc 111.6 Estimated GFR > 60 POC Glucose Random Glucose 98 Calcium 8.3 L D Phosphorus 1.6 L Magnesium 2.1 Lactate Dehydrogenase Total Creatine Kinase Troponin I High Sens 101.0 H* Albumin 3.0 L D Hepatitis A IgM Ab 05/16/22 05:22 WBC RBC Hgb Hct MCV MCH MCHC RDW Plt Count MPV Immature Gran % (Auto) Neut % (Auto) Lymph % (Auto) [place] % (Auto) Eos % (Auto) Baso % (Auto) Lymph # (Auto) [place] # (Auto) Eos # (Auto) Baso # (Auto) Abs Immat Gran (auto) Absolute Neuts (auto) Absolute Nucleated RBC Nucleated RBC % (auto) VBG pH 7.51 H VBG pCO2 37 VBG pO2 78 VBG HCO3 30 H VBG O2 Saturation 97.0 VBG Base Excess 7.3 Sodium Potassium Chloride Carbon Dioxide Anion Gap BUN Creatinine Estim Creat Clear Calc Estimated GFR POC Glucose Random Glucose Calcium Phosphorus Magnesium Lactate Dehydrogenase Total Creatine Kinase Troponin I High Sens Albumin Hepatitis A IgM Ab Microbiology Microbiology Results: Microbiology 05/15/22 03:40 Blood - Venous Blood Culture - Preliminary No growth after 24 hours. 05/15/22 03:40 Blood - Venous Blood Culture - Preliminary No growth after 24 hours. 05/15/22 05:17 Blood - Venous Blood Culture - Final 05/15/22 05:17 Blood - Venous Blood Culture - Final Progress Note: A&P Assessment and plan (1) Myocarditis determined by echocardiography: Status: Acute (2) Toxic encephalopathy: Status: Acute (3) Cocaine abuse: Status: Acute (4) Pulmonary alveolar hemorrhage: Status: Acute (5) Acute hypoxemic respiratory failure: Status: Acute (6) Opiate overdose: Status: Acute (7) Aspiration pneumonia: Status: Acute (8) Respiratory failure: Status: Acute (9) Hepatitis C antibody positive in blood: Status: Acute (10) Hepatitis B: Status: Acute Plan So again the plan is to keep sedated intubated reassess cognitive function as we wean sedation in the morning culture and for temperature spikes but withholding antibiotics pending culture results and the direction of his temperature Quality Stroke Does the patient have a stroke diagnosis?: No VTE Prior VTE?: No VTE Risk Level:: Medical - moderate - high VTE Device Contraindication: N/A - Device Ordered VTE Drug Contraindication: Treatment Not Indicated
[2022-05-17] VITALS (29 sets, daily range): BP systolic 132–158; BP diastolic 77–105; PULSE 80–126; RESP 15–24; TEMP 35–38.8; O2SAT 95–99; BMI 23.5
[2022-05-17 01:32] LABS: VBG Base Excess 4.8 mmol/L; VBG HCO3 27 mmol/L (22-26); VBG pCO2 34 mmHg; VBG pH 7.51 (7.32-7.43); VBG pO2 51 mmHg
[2022-05-17 01:57] LABS: MANUAL DIFF FLAG NO
[2022-05-17 02:00] LABS: Basophils Percent Auto 0.3 % (0-2); Eosinophils Absolute Auto 0.3 X10*3/uL (0.0-0.4); Hematocrit 33.5 % (42.0-52.0); Hemoglobin 10.8 g/dl (14.0-18.0); Imm Gran Abs Auto 0.03 X10*3/uL (0.00-0.03); Imm Gran Pct Auto 0.3 % (0.0-0.4); Lymphocytes Absolute Auto 1.5 X10*3/uL (1.2-4.9); Lymphocytes Percent Auto 16.5 % (20-40); Mean Corpuscular HGB Conc 32.2 g/dl (31.0-36.0); Mean Corpuscular Hemoglobin 29.4 pg (27.0-33.0); Mean Corpuscular Volume 91.3 fL (80.0-98.0); Mean Platelet Volume 12.3 fL (9.4-12.4); Monocytes Absolute Auto 0.7 X10*3/uL (0.1-1.2); Monocytes Percent Auto 7.5 % (2-11); Neutrophils Absolute Auto 6.4 x10*3/uL (2.0-8.3); Neutrophils Percent Auto 72.4 % (45-73); Platelet Count 186 X10*3/uL (160-400); Red Blood Count 3.67 X10*6/uL (4.60-5.80); Red Cell Distribution Width 11.9 % (11.0-16.0); White Blood Count 8.9 X10*3/uL (4.8-10.8)
[2022-05-17 02:22] LABS: Alanine Aminotransferase 17 U/L (0-40); Alkaline Phosphatase 52 U/L (39-117); Anion Gap 12 (12-20); Aspartate Amino Transferase 26 U/L (5-37); Bilirubin Total 0.9 mg/dL (0.0-1.0); Blood Urea Nitrogen 7 mg/dL (9-16); Calcium 8.4 mg/dL (8.4-10.2); Carbon Dioxide 25 mmol/L (22-29); Chloride 109 mmol/L (96-108); Creatinine Clr Calc Pharmacy 128.5; Estimated Glomerular Filt Rate > 60; Glucose Random 118 mg/dL (60-115); Magnesium 2.2 mg/dL (1.6-2.6); Phosphorus 2.3 mg/dL (2.7-4.5); Potassium 3.6 mmol/L (3.3-5.1); Sodium 142 mmol/L (135-145); Total Protein 5.5 g/dL (6.5-8.0)
[2022-05-17] MEDS: propofoL 1,000 MG/100 ML VIAL 23.34 MG IVCONT ×7 (02:32→23:40)
--- NOTE | 2022-05-17 04:46 | PC.NURSE ---
Continues on AC settings. agitated on 50 of propofol and 4 versed, MD aware. Discussed PEEP of 10 with MD, and no need to lower at this time. Afebrile. Mildly alkalotic. TF increased per orders, well tolerated. Dumping urine 200-400cc/hr, MD aware.
[2022-05-17] MEDS: Chlorhexidine Gluc Oral Rinse 15 ML MOUTHWASH BUCCAL ×3 (05:49→20:47)
[2022-05-17] MEDS: Pantoprazole Sodium 40 MG in 0.9 % Sodium Chloride 100 ML 400 MG IV (05:49)
[2022-05-17 06:01] LABS: Venous Blood Gas Refer to POC result
--- NOTE | 2022-05-17 06:42 | PM.CCPN ---
Subjective Subjective Date of Service: 05/17/22 Interval History: 31-year-old male with cocaine fentanyl an opiate intoxication complicated by pulmonary alveolar hemorrhage fever encephalopathy with agitated delirium myocarditis with mild global reduction in ejection fraction is 45-50% and still without cognitive function so he needed to be recent dated today we attempted sedation holiday and failed Critical Care Time (minutes): 45 Physical Exam Vital Signs: Vital Signs: Last Vital Signs Temp 99.3 F 05/17/22 06:05 Pulse 96 05/17/22 06:05 Resp 18 05/17/22 06:05 BP 147/104 H 05/17/22 06:05 Pulse Ox 96 05/17/22 06:05 O2 Del Method 05/17/22 06:05 O2 Flow Rate 15 05/15/22 02:30 FiO2 30 05/17/22 06:05 BMI result Body Mass Index 23.5 Stable vital signs but sinus tachycardia rate 120 no new laboratory changes and the patient is sedated and intubated failed sedation holiday because of persistent delirium No change in bedside echo with globally normal systolic wall motion of the left ventricle Abdomen soft nontender and with temperature spike blood cultures were obtained as well as sputum Chest without adventitious sounds Objective Data Labs CBC & Chem 7: 05/17/22 01:25 05/17/22 01:25 Labs: Laboratory Results - last 24 hr 05/15/22 05/17/22 05/17/22 03:40 01:25 01:25 WBC 8.9 RBC 3.67 L Hgb 10.8 L Hct 33.5 L MCV 91.3 MCH 29.4 MCHC 32.2 RDW 11.9 Plt Count 186 MPV 12.3 Immature Gran % (Auto) 0.3 Neut % (Auto) 72.4 Lymph % (Auto) 16.5 L [place] % (Auto) 7.5 Eos % (Auto) 3.0 Baso % (Auto) 0.3 Lymph # (Auto) 1.5 [place] # (Auto) 0.7 Eos # (Auto) 0.3 Baso # (Auto) 0.0 Abs Immat Gran (auto) 0.03 Absolute Neuts (auto) 6.4 Absolute Nucleated RBC 0.000 Nucleated RBC % (auto) 0.0 VBG pH VBG pCO2 VBG pO2 VBG HCO3 VBG O2 Saturation VBG Base Excess Sodium 142 Potassium 3.6 Chloride 109 H Carbon Dioxide 25 Anion Gap 12 BUN 7 L Creatinine 0.86 Estim Creat Clear Calc 128.5 Estimated GFR > 60 Random Glucose 118 H Calcium 8.4 Phosphorus 2.3 L Magnesium 2.2 Total Bilirubin 0.9 AST 26 D ALT 17 Alkaline Phosphatase 52 D Total Protein 5.5 L D Albumin 3.0 L Hepatitis A IgM Ab Nonreactive 05/17/22 01:26 WBC RBC Hgb Hct MCV MCH MCHC RDW Plt Count MPV Immature Gran % (Auto) Neut % (Auto) Lymph % (Auto) [place] % (Auto) Eos % (Auto) Baso % (Auto) Lymph # (Auto) [place] # (Auto) Eos # (Auto) Baso # (Auto) Abs Immat Gran (auto) Absolute Neuts (auto) Absolute Nucleated RBC Nucleated RBC % (auto) VBG pH 7.51 H VBG pCO2 34 VBG pO2 51 VBG HCO3 27 H VBG O2 Saturation 84.0 VBG Base Excess 4.8 Sodium Potassium Chloride Carbon Dioxide Anion Gap BUN Creatinine Estim Creat Clear Calc Estimated GFR Random Glucose Calcium Phosphorus Magnesium Total Bilirubin AST ALT Alkaline Phosphatase Total Protein Albumin Hepatitis A IgM Ab Microbiology Microbiology Results: Microbiology 05/15/22 03:40 Blood - Venous Blood Culture - Preliminary No growth after 48 hours. 05/15/22 03:40 Blood - Venous Blood Culture - Preliminary No growth after 48 hours. 05/15/22 05:17 Blood - Venous Blood Culture - Final 05/15/22 05:17 Blood - Venous Blood Culture - Final Progress Note: A&P Assessment and plan (1) Hepatitis B: Status: Acute (2) Hepatitis C antibody positive in blood: Status: Acute (3) Myocarditis determined by echocardiography: Status: Acute (4) Toxic encephalopathy: Status: Acute (5) Cocaine abuse: Status: Acute (6) Pulmonary alveolar hemorrhage: Status: Acute (7) Acute hypoxemic respiratory failure: Status: Acute (8) Opiate overdose: Status: Acute (9) Aspiration pneumonia: Status: Acute (10) Respiratory failure: Status: Acute Plan So the plan is to continue to obtain blood cultures with temperature spikes and obviously maintain sedation and support with ventilator reassessment cognitive function in the morning to look for resolution of cognitive function Quality Stroke Does the patient have a stroke diagnosis?: No VTE Prior VTE?: No VTE Risk Level:: Medical - moderate - high VTE Device Contraindication: N/A - Device Ordered VTE Drug Contraindication: Treatment Not Indicated
[2022-05-17] MEDS: Midazolam HCl/NS 50 MG/50 ML PLAST..BAG IVCONT (09:46)
[2022-05-17] MEDS: Rocuronium Bromide 50 MG/5 ML VIAL 40 MG IVPUSH (13:25)
[2022-05-17] MEDS: Midazolam HCl/PF 2 MG/2 ML VIAL IVPUSH (14:10)
--- NOTE | 2022-05-17 15:10 | MHC.CM.PN ---
Call placed to contact listed at [facility] (parent) Message left requesting a call back. This is the same number attempted on 05/15 by CM to which the person answering stated the number was incorrect. Call placed to the [place] [employer] who found pt and brought him to ED. They initially thought he was a reported missing person but unfortunately, this was not the situation. They are aware pt is in the ICU and intubated and will follow up should someone file a report. ICU Care team updated. CM to follow
--- NOTE | 2022-05-17 15:30 | ECG_ITS ---
Test Reason : rhythm check Blood Pressure : / mmHG Vent. Rate : 108 BPM Atrial Rate : 108 BPM P-R Int : 140 ms QRS Dur : 082 ms QT Int : 332 ms P-R-T Axes : 081 091 068 degrees QTc Int : 444 ms Sinus tachycardia Possible Left atrial enlargement Rightward axis RSR' or QR pattern in V1 suggests right ventricular conduction delay Abnormal ECG When compared with ECG of 15-MAY-2022 08:13, RSR' or QR pattern in V1 suggests right ventricular conduction delay is new Heart rate has increased Referred By: Rosa Baires Electronically Signed By:ROBIN SALMON MD
[2022-05-17] MEDS: vancomycin HCL 1,250 MG in 0.9 % Sodium Chloride 250 ML 166.67 MG IV (15:51)
[2022-05-17] MEDS: Midazolam HCl/NS 50 MG/50 ML PLAST..BAG 6 MG IVCONT (17:30)
--- NOTE | 2022-05-17 19:56 | PC.NURSE ---
SEDATION VACATION FAILED IN MORNING, SEE EMAR. PATIENT VOMITED PAST ETT, REPIRATORY CALLED TO VARIFY TUBE PLACEMENT. PATIENT BATHED, REPOSITIONED Q2HR, ROUTINE ORAL CARE PREFORMED.
[2022-05-18] VITALS (23 sets, daily range): BP systolic 101–150; BP diastolic 37–108; PULSE 54–107; RESP 13–36; TEMP 35–38.5; O2SAT 87–99; BMI 23.1; BMI 23.5
[2022-05-18] MEDS: Midazolam HCl/NS 50 MG/50 ML PLAST..BAG 6 MG IVCONT ×2 (01:02→09:40)
[2022-05-18] MEDS: propofoL 1,000 MG/100 ML VIAL 23.34 MG IVCONT ×3 (02:13→09:35)
[2022-05-18 04:36] LABS: VBG Base Excess 3.6 mmol/L; VBG HCO3 26 mmol/L (22-26); VBG pCO2 34 mmHg; VBG pH 7.49 (7.32-7.43); VBG pO2 53 mmHg
[2022-05-18 04:39] LABS: MANUAL DIFF FLAG NO
[2022-05-18 04:40] LABS: Basophils Percent Auto 0.4 % (0-2); Eosinophils Absolute Auto 0.2 X10*3/uL (0.0-0.4); Imm Gran Abs Auto 0.03 X10*3/uL (0.00-0.03); Imm Gran Pct Auto 0.4 % (0.0-0.4); Lymphocytes Absolute Auto 1.5 X10*3/uL (1.2-4.9); Lymphocytes Percent Auto 19.8 % (20-40); Mean Corpuscular HGB Conc 33.3 g/dl (31.0-36.0); Mean Corpuscular Hemoglobin 30.4 pg (27.0-33.0); Mean Corpuscular Volume 91.2 fL (80.0-98.0); Mean Platelet Volume 12.4 fL (9.4-12.4); Monocytes Absolute Auto 0.6 X10*3/uL (0.1-1.2); Monocytes Percent Auto 8.5 % (2-11); Neutrophils Absolute Auto 5.2 x10*3/uL (2.0-8.3); Neutrophils Percent Auto 68.9 % (45-73); Platelet Count 182 X10*3/uL (160-400); Red Blood Count 3.62 X10*6/uL (4.60-5.80); White Blood Count 7.5 X10*3/uL (4.8-10.8)
[2022-05-18 04:56] LABS: Anion Gap 16 (12-20); Blood Urea Nitrogen 9 mg/dL (9-16); Calcium 8.6 mg/dL (8.4-10.2); Carbon Dioxide 21 mmol/L (22-29); Chloride 110 mmol/L (96-108); Creatinine Clr Calc Pharmacy 141.6; Estimated Glomerular Filt Rate > 60; Glucose Random 117 mg/dL (60-115); Magnesium 2.2 mg/dL (1.6-2.6); Potassium 3.6 mmol/L (3.3-5.1); Sodium 143 mmol/L (135-145)
[2022-05-18] MEDS: Pantoprazole Sodium 40 MG in 0.9 % Sodium Chloride 100 ML 400 MG IV (05:44)
[2022-05-18] MEDS: Chlorhexidine Gluc Oral Rinse 15 ML MOUTHWASH BUCCAL (05:44)
[2022-05-18 06:11] LABS: Venous Blood Gas Refer to POC result
--- NOTE | 2022-05-18 07:23 | PM.CCPN ---
Subjective Subjective Date of Service: 05/18/22 Interval History: 31-year-old polysubstance abuser presented with cocaine fentanyl an opiate intoxication complicated by agitated delirium probable pulmonary alveolar hemorrhage and questionable associated aspiration mostly to right lung but he did beautifully on the ventilator despite fever spikes which I believe were related to the cocaine and as well as the encephalopathy and all the other complications nothing has grown from any of the cultures with oral Augmentin will do a bedside swallow in introduce clear liquids put him on p.r.n. Ativan to cover him for any me know agitated issues that he has but right now ease clinically fully withdrawn complete resolution of his cognitive function and no physical stigmata of withdrawal and the weaning trial we watched him for an extensive amount of time with excellent tidal volume respiratory rate was in the mid 20s his vital capacity exceeded 1200 cc awake alert cooperative thus far and so he was successfully in comfortably extubated does not require any mechanical support Critical Care Time (minutes): 45 Physical Exam Vital Signs: Vital Signs: Last Vital Signs Temp 98.1 F 05/18/22 06:00 Pulse 82 05/18/22 07:00 Resp 18 05/18/22 07:00 BP 149/92 H 05/18/22 07:00 Pulse Ox 98 05/18/22 07:00 O2 Del Method 05/18/22 07:00 O2 Flow Rate 15 05/15/22 02:30 FiO2 30 05/18/22 07:00 BMI result Body Mass Index 23.1 Awake alert and oriented good cognitive function and nonfocal neurologically Chest without accessory muscle a diaphragmatic effort Cardiac exam by bedside echo 50% ejection fraction no segmental wall motion abnormality Abdomen soft no organomegaly Skin without the cellulitic lesions Objective Data Labs CBC & Chem 7: 05/18/22 04:23 05/18/22 04:23 Labs: Laboratory Results - last 24 hr 05/18/22 05/18/22 05/18/22 04:23 04:23 04:30 WBC 7.5 RBC 3.62 L Hgb 11.0 L Hct 33.0 L MCV 91.2 MCH 30.4 MCHC 33.3 RDW 12.0 Plt Count 182 MPV 12.4 Immature Gran % (Auto) 0.4 Neut % (Auto) 68.9 Lymph % (Auto) 19.8 L [place] % (Auto) 8.5 Eos % (Auto) 2.0 Baso % (Auto) 0.4 Lymph # (Auto) 1.5 [place] # (Auto) 0.6 Eos # (Auto) 0.2 Baso # (Auto) 0.0 Abs Immat Gran (auto) 0.03 Absolute Neuts (auto) 5.2 Absolute Nucleated RBC 0.000 Nucleated RBC % (auto) 0.0 VBG pH 7.49 H VBG pCO2 34 VBG pO2 53 VBG HCO3 26 VBG O2 Saturation 82.0 VBG Base Excess 3.6 Sodium 143 Potassium 3.6 Chloride 110 H Carbon Dioxide 21 L Anion Gap 16 BUN 9 Creatinine 0.78 Estim Creat Clear Calc 141.6 Estimated GFR > 60 Random Glucose 117 H Calcium 8.6 Magnesium 2.2 Microbiology Microbiology Results: Microbiology 05/15/22 03:40 Blood - Venous Blood Culture - Preliminary No growth after 48 hours. 05/15/22 03:40 Blood - Venous Blood Culture - Preliminary No growth after 48 hours. 05/15/22 05:17 Blood - Venous Blood Culture - Final 05/15/22 05:17 Blood - Venous Blood Culture - Final Progress Note: A&P Assessment and plan (1) Hepatitis B: Status: Acute (2) Hepatitis C antibody positive in blood: Status: Acute (3) Myocarditis determined by echocardiography: Status: Acute (4) Toxic encephalopathy: Status: Acute (5) Cocaine abuse: Status: Acute (6) Pulmonary alveolar hemorrhage: Status: Acute (7) Acute hypoxemic respiratory failure: Status: Acute (8) Opiate overdose: Status: Acute (9) Aspiration pneumonia: Status: Acute (10) Respiratory failure: Status: Acute Plan Did beautifully with his ventilator weaning trial on on his sedation holiday he has got resolved encephalopathy resolved respiratory insufficiency will follow this with removing his triple-lumen starting on oral Augmentin and p.r.n. Ativan clear liquids if he passes his swallow and then hopefully are substance abuse nurse will see him and possibly enroll him on a withdrawal program Quality Stroke Does the patient have a stroke diagnosis?: No VTE Prior VTE?: No VTE Risk Level:: Medical - moderate - high VTE Device Contraindication: N/A - Device Ordered VTE Drug Contraindication: Treatment Not Indicated
[2022-05-18] MEDS: dexmedeTOMIDidine HCL/NS 400 MCG/100 ML INFUS..BTL 18.25 MCG IVCONT (11:28)
--- NOTE | 2022-05-18 15:27 | PM.EVENT ---
Event Note Date of Service: 05/19/22 Event Note: patient is already seen and examined ICU today, patient was admitted for acute hypoxemic respiratory failure-? in the setting of drug use, aspiration pneumonia patient was the extubated this afternoon- mentating better physical exam please see in ICU note. assessment and plan coordinated in ICU note. in addition Patient has possible aspiration component pneumonia, also blood is positive hepatitis-C antibody id evaluation pending will add aircraft engine specialist .
[2022-05-18] MEDS: Amoxicillin/Potassium Clav 500 MG TABLET PO (15:39)
--- NOTE | 2022-05-18 23:02 | PM.EVENT ---
Event Note Date of Service: 05/18/22 Event Note: a rapid response was called on the pt after he was found unresponsive on the bathroom floor. pt was fund to have heroin injection needles. he was resuscitated with a dose of narcan. he raginaed immediate consciouness post injection of Narcan. He stated that he overdosed on heroin. he was alert, oriented, sating 99% post narcan, on RA. ( Initially 14% before narcan was given) about 30 mins later pt wants to leave AMA he is alert, oriented to self and place. states that he understands the risk of leaving AMA, including dying likely from overdose and or hypoxia. He states his is picking him up . I repeated several times and he demonstarted understanding the risk of leaving against my advice
--- NOTE | 2022-05-18 23:18 | PC.NURSE ---
Patient transferred to [facility] from ICU today. Patient alert oriented appropriate , was assessed for ambulation to bathroom independantly. Was notified by VMT camera was not working, tried to reset camera, allowed patient to walk to bathroom alone. At approximately 2245 this RN heard a bang in the bathroom door was locked, ASSISTANT RESEARCH SCIENTIST and another RN opened bathroom door patient leaning against the wall on the floor unresponsive. ASSISTANT RESEARCH SCIENTIST and other RN carried patient to bed. ASSISTANT RESEARCH SCIENTIST found paper with powder residue in bathroom. Rapid response was called, Vitals:BP 156/80; pulse 140;O2 sats 19% RR <6. Respiratory at bedside, patient was ambu bagged for approximately 1 min, 2247 Narcan administered patient woke up , patient confused, Dr at bedside educating patient that he overdosed. Security at bedside for a search of belongings. patient requesting AMA, called and reassessed patient explained risks associated with leaving AMA, patient understanding. Paperwork signed by patient and witnessed by this RN and associate RN.
--- NOTE | 2022-05-19 07:29 | PM.EVENT ---
Event Note Date of Service: 05/19/22 Event Note: brief discharge summary and diagnosis: patient was transferred from ICU yesterday: Patient was admitted for hypoxemic respiratory failure possible related to multifactorial? drug use /possible component of aspiration. was intubated in the ICU and extubated yesterday subsequently transferred to the floor- add rapid response last night due to possible drug use please refer to event note by Dr. Herrera. patient left against medical advise overnight(event note by Dr. Herrera.) discharge diagnosis : hypoxemic respiratory failure possible related to multifactorial? drug use /possible component of aspiration.
== END 2022-05-18 23:45 | disposition left against medical advice (07) | DRG 816 ==
LOC: HO.ED 05:16 → HO.ICU 06:02 → HO.IMC 05-18 15:22
PROVIDERS: Internal Medicine Pulmonary Disease; Nurse Practitioner Family; Admitting Provider Internal Medicine Cardiovascular Disease; Emergency Provider Emergency Medicine Emergency Medical Services; Visit Provider Internal Medicine Cardiovascular Disease
DX: T40.5X1A Poisoning by cocaine, accidental (unintentional), initial encounter (principal); J96.01 Acute respiratory failure with hypoxia; J69.0 Pneumonitis due to inhalation of food and vomit; G92.9 Unspecified toxic encephalopathy; T40.2X1A Poisoning by other opioids, accidental (unintentional), initial encounter; J70.4 Drug-induced interstitial lung disorders, unspecified; R04.89 Hemorrhage from other sites in respiratory passages; F14.10 Cocaine abuse, uncomplicated; B19.10 Unspecified viral hepatitis B without hepatic coma; F17.210 Nicotine dependence, cigarettes, uncomplicated; I51.4 Myocarditis, unspecified; Z71.6 Tobacco abuse counseling; Z78.1 Physical restraint status; B19.20 Unspecified viral hepatitis C without hepatic coma; Z20.822 Contact with and (suspected) exposure to COVID-19
CPT/HCPCS: 0241U; 36415; 70450; 71045; 80048; 80053; 80307; 82040; 82077; 82550; 82803; 82947; 83605; 83615; 83735; 84100; 84484; 85025; 86704; 86706; 86709; 86803; 87040; 87070; 87205; 87340; 87389; 93005; 93306; 94002; 94003; 99285; C1758; J0131; J1200; J1953; J2185; J2250; J2543; J3370

== ENCOUNTER 2022-07-09 07:19 | Emergency (ER) | payer MEDICAID, SELFPAY ==
[2022-07-09 07:28] VITALS: BP 143/96; BP 150/80; PULSE 110; PULSE 87; RESP 16; TEMP 36.4; O2SAT 100; O2SAT 99; BMI 26.6
--- NOTE | 2022-07-09 08:19 | ED.OVERDOSE ---
HPI - Overdose General Chief Complaint: Overdose Stated Complaint: OD,narcan given by friend per EMS Time Seen by Provider: 07/09/22 08:04 Source: patient and EMS Mode of arrival: EMS History of Present Illness HPI Narrative: 31-year-old male with a past medical history of substance abuse presented to the ED via EMS s/p accidental overdose TATTOO ARTIST. Patient admits to injecting 1 bag of heroin, was given 8 mg of intranasal Narcan by friends/by standard with positive result. Patient denies symptoms at present. Denies SI/HI. Also reports cocaine use, denies ETOH or other illicit substances. Denies injury/trauma or fall, headache, CP/SOB, abdominal pain, nausea/vomiting MD complaint: accidental overdose Related Data Allergies Allergy/AdvReac Type Severity Reaction Status Date / Time No Known Allergies Allergy Verified 07/09/22 08:23 Review of Systems Review of Systems: Constitutional: No Fever, No Chills, No Fatigue, No Malaise ENT/Mouth: No Ear Pain, No Nasal Congestion, No sore throat, No Rhinorrhea, No Swallowing Difficulty Eyes: No Eye Pain, No Swelling, No Redness Cardiovascular: No Chest Pain, No SOB, No Edema, No Palpitations Respiratory: No Cough, No Sputum, No Dyspnea Gastrointestinal: No Nausea, No Vomiting, No Diarrhea, No Constipation, No Abdominal pain Genitourinary: No Dysuria, No Urinary Frequency, No Hematuria, No Flank Pain, No Urinary Flow Changes, No Hesitancy Musculoskeletal: No joint pain, No Myalgias, No Joint Swelling Skin: No Skin Lesions, No rash Neuro: No Weakness, No Numbness, No Paresthesias, No Loss of Consciousness, No Dizziness, No Headache Psych: No Anxiety/Panic, No Depression, No SI/HI, No Social Issues Yes all other systems are reviewed and are negative Constitutional: Constitutional: Reports as per [facility] Past Medical History Attestation statement: The following information was validated with the patient. Social History Social History Smoked in Last 30 Days: Yes Substance Use Type: Heroin Advance Directives: No Advance Directives Information Provided: No Physical Exam Vital Signs: Vital Signs: Last Vital Signs Temp 97.6 F 07/09/22 07:28 Pulse 87 07/09/22 07:28 Resp 16 07/09/22 07:28 BP 143/96 H 07/09/22 07:28 Pulse Ox 99 07/09/22 07:28 O2 Del Method 07/09/22 07:28 BMI result Body Mass Index 26.6 Const: Other: Awake and alert General: cooperative and no acute distress Orientation/consciousness: patient oriented x3 Limitations: no limitations HEENT: Head: Yes normal to inspection and Yes atraumatic Ears: hearing grossly normal bilaterally General nose exam: Normal external nose present Face and sinus: Yes normal facial exam Eyes: General: appearance normal, both eyes and all related structures EOM: EOMs intact bilaterally Neck: Neck: Yes normal visual inspection and Yes no meningeal signs Resp: Effort & Inspection: normal respiratory effort and no respiratory distress Auscultation: clear to auscultation bilaterally Cardio: Rate: regular rate Heart sounds: S1 normal heart sound present and S2 normal heart sound present GI: Inspection: Yes normal to inspection Palpation (GI): Soft to palpation, nontender, no guarding and not rigid Skin: Rashes: no rashes Wounds: no wounds Neuro: General: patient oriented x3, gait normal, tone normal, moves all extremities, no meningeal signs, no focal motor deficits and CN's II-XI intact bilaterally Gait exam (Neuro): Normal gait present Extrem: General: Yes normal to inspection Psych: Thought content: suicidality and no homicidality Medications Administered Discontinued Medications Generic Name Dose Route Start Last Admin Trade Name Freq PRN Reason Stop Dose Admin Naloxone HCl 4 mg 07/09/22 08:23 07/09/22 08:41 Naloxone Hcl Nasal Take Home 4 Mg [place] NOSTRILALT 07/09/22 08:24 Not Given ONCE ONE Medical Decision Making Medical Decision Making [facility] Narrative: 31-year-old male with a past medical history of substance abuse presented to the ED via EMS s/p accidental overdose TATTOO ARTIST. Patient admits to injecting 1 bag of heroin, was given 8 mg of intranasal Narcan by friends/by standard with positive result. On exam VSS, NAD, MILLER, ambulating with steady gait. No SI/HI. Pt refusing SUDE Patient has been observed for the ED for just over an hour and has remained awake and alert Will d/c with to go Narcan Differential Diagnosis Differential Diagnoses: The differential diagnosis associated with the presentation includes as above Discharge Plan Discharge Clinical Impression: Drug overdose Patient Disposition: Home, Self-Care Instructions: Adult Overdose (ED) Additional Instructions: avoid alcohol and drug use if you have thoughts of hurting herself or others return to the emergency department Your being sent home with Narcan Referrals: [facility] [Provider Group] Interventions: [place]-Suicide Risk Severity Scale Last Done: 07/09/22 07:33 ED Discharge Assessment Last Done: 07/09/22 08:42 Discharge Date/Time: 07/09/22 08:42
== END 2022-07-09 08:42 | disposition home or self-care (01) ==
PROVIDERS: Emergency Provider Student in an Organized Health Care Education/Training Program
DX: T40.1X1A Poisoning by heroin, accidental (unintentional), initial encounter (principal); Y92.9 Unspecified place or not applicable; F11.10 Opioid abuse, uncomplicated; Z71.51 Drug abuse counseling and surveillance of drug abuser
CPT/HCPCS: 99284; 99285

== ENCOUNTER 2024-04-13 07:18 | Emergency (ER) | payer MEDICAID, SELFPAY ==
[2024-04-13 07:23] VITALS: BP 120/80; PULSE 62; O2SAT 98
--- NOTE | 2024-04-13 07:27 | ED.WOUNDLAC ---
HPI - Wound/Laceration General Stated Complaint: FOUND SLEEPING ON SIDE OF RD,FINGER INJURY PER EMS Time Seen by Provider: 04/13/24 07:21 Source: patient and EMS Mode of arrival: EMS Limitations: no limitations History of Present Illness HPI narrative: 33 year old male currently homeless got out of senior living yesterday. He states he was carrying some rocks and comes to the ER after being found sleeping on a bench outside by police. Comes in via EMS for some abrasions to his fingers and is asking for breakfast on arrival. He has no other complaints. He states his tetanus is up to date. Related Data Home Medications ?Medication ?Instructions ?Recorded ?Confirmed No Known Home Meds 05/15/22 05/15/22 Allergies Allergy/AdvReac Type Severity Reaction Status Date / Time No Known Allergies Allergy Unverified 07/31/22 08:32 Review of Systems Review of Systems: Review of systems: General: Patient denies any fever chills recent illness or falls Musculoskeletal: Denies back pain or body aches or other injuries HEENT: denies headache, runny nose, ear pain Respiratory: denies shortness of breath, cough Cardiovascular: no chest pain or palpitations : denies dysuria, frequency Abdomen: no nausea vomiting denies abdominal pain Extremities: no swelling, no pain Skin: abrasions to left hand several fingers no diaphoresis Yes all other systems are reviewed and are negative PMFSH Past Medical History Medical History (Updated 04/13/24 @ 07:32 by Dallas Ortiz DO) Hepatitis B Hepatitis C antibody positive in blood Social History Social History (System 07/31/22 @ 08:32 by Honey English) Household Members: Other Housing: Homeless Do you presently have visiting nurse or other home services: No Comment: ledesma removed change to low fall risk Patient Tobacco Use Status: Current someday Tobacco user Substance Use Type: Heroin Physical Exam Vital Signs: General: Well-appearing well-nourished in no signs of distress HEENT: Normocephalic atraumatic Neck: No signs of JVD, no masses no tenderness or lymphadenopathy Cardiovascular: Regular rate and rhythm Respiratory: Clear to auscultation bilaterally Abdomen: Soft nontender no masses Extremities: Normal pedal pulses no signs of edema Skin: Small abrasions to volar surface of fingers 2-5 on the left hand no signs of infection otherwise Dry warm no rashes Back: No tenderness full ROM Medical Decision Making Medical Decision Making [facility] Narrative: Patient will get some breakfast and dressings on his fingers and we will send home. Differential Diagnosis Differential Diagnoses: The differential diagnosis associated with the presentation includes Abrasions, alcohol abuse drug abuse homeless Discharge Plan Discharge Clinical Impression: Abrasion hand, Homeless Patient Disposition: Home, Self-Care Instructions: Abrasion (ED) Additional Instructions: You brought into the emergency department after being sleeping on a park bench found have some abrasions to her hand. Please call follow up with your doctor if you have any other concerns please return to the emergency department. Prescriptions: No Action No Known Home Meds Print Language: Italian
[2024-04-13 07:33] VITALS: BP 119/77; PULSE 80; RESP 16; TEMP 36.4; O2SAT 98; BMI 25.8
[2024-04-13 07:47] VITALS: BP 119/77; PULSE 80; RESP 16; TEMP 36.4; O2SAT 98
--- NOTE | 2024-04-13 11:30 | MHC.EDTECH ---
@ 11:30AM [employer] CALL TO LET THIS PT KNOW THAT HIS PHONE IS @ THE [facility]ICE STATION. PT HAS BEEN DISCHARGED FOR A FEW HOURS ALREADY @ THIS TIME IF PT CALLS FOR CELL PHONE HE CAN CALL [facility] @ [phone] OR GO TO THE POLICE STATION TO PICK IT UP.
== END 2024-04-13 07:52 | disposition home or self-care (01) ==
PROVIDERS: Emergency Provider Student in an Organized Health Care Education/Training Program
DX: S60.512A Abrasion of left hand, initial encounter (principal); X58.XXXA Exposure to other specified factors, initial encounter; Z59.00 Homelessness unspecified; Y93.84 Activity, sleeping; Y92.480 Sidewalk as the place of occurrence of the external cause; Y99.9 Unspecified external cause status
CPT/HCPCS: 99282

== ENCOUNTER 2025-01-03 08:26 | Emergency (ER) | payer MEDICAID, SELFPAY ==
[2025-01-03] VITALS (10 sets, daily range): BP systolic 101–135; BP diastolic 50–98; PULSE 70–120; RESP 14–26; TEMP 36.3–36.8; O2SAT 94–100; BMI 28.2
--- NOTE | 2025-01-03 08:59 | ED_ITS ---
HPI - General Adult General Chief complaint: Psychiatric Symptoms Stated complaint: od, 4mg narcan given Time Seen by Provider: 01/03/25 08:54 History of Present Illness ED Provider: Lolly JO narrative: The patient is a 34-year-old male with a history of substance use disorder. Apparently he was recently at the [facility] detox facility on a [address]. He left the facility 3 days ago. He resumed drug use after leaving the facility. Apparently he was found outside today having overdosed. Police officers found him. He was given 8 mg of nasal naloxone. He became much more alert and admitted he has been smoking crack and ?taking some pills. ? He has a history of cocaine and fentanyl use. On arrival here the patient was a very poor historian. He seemed very disorganized in his speech and extremely agitated and restless. Related Data Home Medications ?Medication ?Instructions ?Recorded ?Confirmed bupropion HCl 75 mg tablet PO 01/03/25 clonidine HCl 0.1 mg tablet 0.1 mg PO TID 01/03/25 hydroxyzine pamoate 25 mg capsule PO 01/03/25 Allergies Allergy/AdvReac Type Severity Reaction Status Date / Time No Known Allergies Allergy Verified 01/03/25 08:34 Review of Systems 2 Review of Systems: Yes all other systems are reviewed and are negative PMFSH Past Medical History Medical History (Updated 01/05/25 @ 11:12 by Wu Ambrocio MD) Hepatitis B Hepatitis C antibody positive in blood Social History Social History (System 07/31/22 @ 08:32 by Honey English) Household Members: Other Housing: Homeless Do you presently have visiting nurse or other home services: No Unable to assess alcohol history related to: Refusing to respond Comment: callie removed change to low fall risk Patient Tobacco Use Status: Current someday Tobacco user Smoked in Last 30 Days: No Substance Use Type: Heroin Advance Directives: No Advance Directives Information Provided: Yes Do you have a plan to hurt others: No Plan Physical Exam ED Vital Signs: Vital Signs - 24 hr 01/03/25 10:23 01/03/25 10:53 01/03/25 11:24 Temperature Pulse Rate 90 88 85 Respiratory Rate 18 15 16 Blood Pressure 108/52 L 120/50 L 124/50 L Pulse Oximetry 94 Oxygen Delivery Method Room Air 01/03/25 11:53 01/03/25 13:07 01/03/25 16:22 Temperature 98.0 F Pulse Rate 96 70 84 Respiratory Rate 18 14 16 Blood Pressure 124/53 L 114/56 L 135/74 Pulse Oximetry 96 96 100 Oxygen Delivery Method Room Air Room Air Room Air 01/03/25 20:14 01/03/25 20:17 Temperature 98.3 F Pulse Rate 79 Respiratory Rate 18 Blood Pressure 114/64 114/64 Pulse Oximetry 98 Oxygen Delivery Method Room Air BMI result Body Mass Index 28.2 Const Other: The patient is a athletic looking 34-year-old who was awake and alert. He was somewhat sweaty. He seemed restless and agitated. HENMT Other: Face was symmetrical. Mucous membranes not obviously dry. Airway clear. Eyes General: appearance normal, both eyes and all related structures Conjunctivae: conjunctivae normal Pupils: Equal, round and reactive pupils present EOM: EOMs intact bilaterally Neck Neck: Yes full ROM, Yes no lymphadenopathy and Yes supple Resp Effort & Inspection: normal respiratory effort Auscultation: clear to auscultation bilaterally Cardio Rate: regular rate Rhythm: regular rhythm Heart sounds: S1 normal heart sound present and S2 normal heart sound present GI Other: Abdomen was soft and nontender Skin Other: The patient had some track contreras on the skin of his forearms. No rash. He was somewhat sweaty. Neuro Other: The patient was awake but has a bizarre demeanor. He seemed restless and his speech was often tangential. Eye movements were intact. Pupils were reactive and equal. Tongue was midline. Face symmetrical. Cranial nerves 2 through 12 seemed intact. He had normal strength and sensation in his extremities. He seemed to have normal coordination although he seemed restless. Cranial nerves: Yes Equal, round and reactive pupils present Extrem Other: No peripheral edema. No deformities. Course Reevaluation(s) Reevaluation #1: Time: 09:39 Date: 01/04/25 Provider: Wu Ambrocio MD Physician observation ended at 09:39. Patient has been cleared for discharge by the CARE team. Will follow up as an outpatient. The patient was kept in the Emergency Department overnight for re-evaluation this morning out of concern for possible mental health illness as opposed to substance use problems. This morning the patient seems much more coherent than he did yesterday. He was seen by a member of the care team who does not feel that there is grounds for involuntary psychiatric hospitalization. The patient is requesting discharge. He will therefore be discharged. He says he is not currently feeling any sense of opioid withdrawal. He attributes this to having received an injection of Sublocade at his most recent detox facility stay. He says that he has plans to follow up with the [facility]. Medications Administered Discontinued Medications Generic Name Dose Route Start Last Admin Trade Name Raf PRN Reason Stop Dose Admin Bupropion HCl 150 mg 01/03/25 21:00 01/04/25 10:07 Bupropion Hcl 75 Mg Tablet PO Not Given BID BUTCH Clonidine HCl 0.2 mg 01/03/25 21:00 01/03/25 20:17 Clonidine Hcl 0.2 Mg Tablet PO 0.2 mg BEDTIME BUTCH Administration Protocol Diazepam 10 mg 01/03/25 08:59 01/03/25 09:07 Diazepam 5 Mg Tablet PO 01/03/25 09:00 10 mg ONCE ONE Administration Diazepam 10 mg 01/03/25 10:08 01/03/25 10:13 Diazepam 10 Mg/2 Ml [place]ridge IVPUSH 01/03/25 10:09 10 mg STAT STA Administration Diazepam 5 mg 01/03/25 12:40 01/03/25 12:44 Diazepam 10 Mg/2 Ml [place] IVPUSH 01/03/25 12:41 5 mg STAT STA Administration Hydroxyzine HCl 50 mg 01/03/25 21:00 01/03/25 20:17 Hydroxyzine Hcl 50 Mg Tablet PO 50 mg BEDTIME BUTCH Administration Hydroxyzine HCl 25 mg 01/03/25 21:00 01/04/25 10:07 Hydroxyzine Hcl 25 Mg Tablet PO Not Given BID BUTCH Sodium Chloride 1,000 mls @ 999 mls/hr 01/03/25 10:15 01/03/25 11:14 Ns IV 01/03/25 11:15 Infused .Q1H1M BUTCH Infusion Sodium Chloride 1,000 mls @ 999 mls/hr 01/03/25 11:00 01/03/25 12:40 Ns IV 01/03/25 12:00 Infused .Q1H1M BUTCH Infusion Lactated Ringer's 1,000 mls @ 999 mls/hr 01/03/25 12:45 01/03/25 13:38 Lr IV 01/03/25 13:45 Infused .Q1H1M BUTCH Infusion Naloxone HCl 8 mg 01/04/25 10:04 01/04/25 10:07 Naloxone Hcl Nasal Take Home 4 Mg [place] NOSTRILALT 01/04/25 10:05 8 mg ONCE ONE Administration Quetiapine Fumarate 50 mg 01/03/25 21:00 01/04/25 10:07 Quetiapine Fumarate 50 Mg Tablet PO Not Given BID BUTCH Quetiapine Fumarate 100 mg 01/03/25 21:00 01/03/25 20:17 Quetiapine Fumarate 100 Mg Tablet PO 100 mg BEDTIME BUTCH Administration Medical Decision Making Medical Decision Making [facility] Narrative: The patient is a 34-year-old male with a history of substance use disorder who presents to the emergency room after having received naloxone from 1st responders. He has been found unconscious outside in the heat. He has signs of track contreras. He admitted to having smoked crack cocaine and ?taking some pills. ? His initial presentation was perplexing. He was extremely restless and seemed somewhat delirious. With some difficulty we were able to get him to take 10 mg of oral diazepam. He became somewhat more calm and we were able to place an IV and administer IV diazepam as well as IV fluids. The patient has a mild rise in his CPK. His initial CPK was 08/01/1981. A repeat after hydration a few hours later was 1442. He has a mild leukocytosis which I think is a reactive finding. His CRP was only 0.73. The patient has slept for several hours while he was being hydrated. Ultimately he awoke. He continued to seem to have some tangential thinking and did not seem to be very well organized. He was asking to be discharged but my overall impression was that he might have some degree of a thought disorder. I requested a care team consult. The care team also felt that he seemed quite disorganized and therefore we ultimately decided to keep him in the hospital and a section 12 overnight for a better evaluation in the morning. I did not feel that he would be safe to release from the hospital. The patient had recently been discharged from the [place] detox facility where he has been for 45 days on a [address]. He has only been out of the institution for, I believe, 4 days. Apparently his discharge medications, according to his sister, were bupropion, clonidine, quetiapine, and hydroxyzine. I have ordered these medications. The patient will be placed in physician observation. Lab Data 01/03/25 10:03 01/03/25 10:03 Labs: Lab Results 01/03/25 01/03/25 01/03/25 Range/Units 10:03 13:59 18:29 WBC 17.4 H (4.8-10.8) X10*3/uL RBC 4.61 D (4.60-5.80) X10*6/uL Hgb 13.7 L D (14.0-18.0) g/dl Hct 39.7 L D (42.0-52.0) % MCV 86.1 (80.0-98.0) fL MCH 29.7 (27.0-33.0) pg MCHC 34.5 (31.0-36.0) g/dl RDW 11.5 (11.0-16.0) % Plt Count 255 D (160-400) X10*3/uL MPV 11.3 (9.4-12.4) fL Immature Gran % (Auto) 0.4 (0.0-0.4) % Neut % (Auto) 82.2 H (45-73) % Lymph % (Auto) 9.5 L (20-40) % [place] % (Auto) 7.3 (2-11) % Eos % (Auto) 0.2 (0-4) % Baso % (Auto) 0.4 (0-2) % Lymph # (Auto) 1.7 (1.2-4.9) X10*3/uL [place] # (Auto) 1.3 H (0.1-1.2) X10*3/uL Eos # (Auto) 0.0 (0.0-0.4) X10*3/uL Baso # (Auto) 0.1 (0.0-0.2) X10*3/uL Abs Immat Gran (auto) 0.07 H (0.00-0.03) X10*3/uL Absolute Neuts (auto) 14.4 H (2.0-8.3) x10*3/uL Absolute Nucleated RBC 0.000 (0.0-0.012) X10*3/uL Nucleated RBC % (auto) 0.0 (0.0-0.2) /100WBC Sodium 138 (135-145) mmol/L Potassium 3.8 (3.3-5.1) mmol/L Chloride 104 (96-108) mmol/L Carbon Dioxide 25 (22-29) mmol/L Anion Gap 13 (12-20) BUN 27 H (9-16) mg/dL Creatinine 1.23 (0.5-1.4) mg/dL Estim Creat Clear Calc 86.5 Estimated GFR > 60 Random Glucose 102 (60-115) mg/dL Calcium 9.0 (8.4-10.2) mg/dL Magnesium 2.6 (1.6-2.6) mg/dL Total Bilirubin 0.7 (0.0-1.0) mg/dL Direct Bilirubin 0.2 (0.0-0.5) mg/dL AST 70 H (5-37) U/L ALT 45 H (0-40) U/L Alkaline Phosphatase 67 (39-117) U/L Total Creatine Kinase 2182 H 1442 H (38-174) U/L C-Reactive Protein 0.73 H (< or = 0.50) mg/dL Total Protein 8.4 H (6.5-8.0) g/dL Albumin 4.7 (3.5-5.0) g/dL Urine Color Yellow Urine Appearance Clear Urine pH 6.0 (5.0-9.0) Ur Specific [place] >= 1.030 H (1.005-1.025) Urine Protein 30 (1+) H (Neg-Trace) mg/dL Urine Glucose (UA) Negative (Negative) mg/dL Urine Ketones 15 (Negative) mg/dL Urine Blood Negative (Negative) Urine Nitrite Negative (Negative) Ur Leukocyte Esterase Negative (Negative) Urine RBC 0-2 (0-2) /HPF Urine WBC 0-5 (0-5) /HPF Ur Squamous Epith Cells 0-2 (0-2) /HPF Urine Bacteria None Seen (None Seen) Hyaline Casts 0-2 (0-2) /LPF Urine Opiates Screen POSITIVE H (Not Detect) Ur Buprenorphine Scrn Positive H (Not Detect) ng/mL Ur Oxycodone Screen Not Detected (Not Detect) ng/mL Urine Methadone Screen Not Detected (Not Detect) ng/mL Urine Fentanyl Screen POSITIVE H (Not Detect) Ur Barbiturates Screen Not Detected (Not Detect) Ur Phencyclidine Scrn Not Detected (Not Detect) Ur Amphetamines Screen Not Detected (Not Detect) U Benzodiazepines Scrn POSITIVE H (Not Detect) Urine Cocaine Screen POSITIVE H (Not Detect) U Marijuana (THC) Screen POSITIVE H (Not Detect) Ethyl Alcohol < 10 mg/dL Critical Care Time Critical Care Time Critical Care Time: Yes Total Critical Care Time: 35 Attestation: The patient was critically ill with a high probability of imminent or life- threatening deterioration. ?I spent greater than 30 minutes of discontinuous time evaluating the patient, delivering critical care at the bedside, discussing evaluating data with consultants. ?Critical care time does not include time spent performing separately billable procedures or teaching. ?Time spent performing critical care with 35 minutes. Discharge Plan Discharge Clinical Impression: Disorganized thinking, Substance use disorder Patient Disposition: Home, Self-Care Additional Instructions: Please try to avoid using opioids in the future. Please continue the prescriptions that were provided for you at your most recent discharge. Follow up with the [facility]. Return to the emergency room if you feel significantly worse. Prescriptions: No Action clonidine HCl 0.1 mg tablet 0.1 mg PO TID bupropion HCl 75 mg tablet PO hydroxyzine pamoate 25 mg capsule PO Referrals: [facility] [Provider Group] Interventions: [place]-Suicide Risk Severity Scale Last Done: 01/03/25 17:52 ED Discharge Assessment Last Done: 01/04/25 10:10 Discharge Date/Time: 01/04/25 10:11 Print Language: Nepalese
--- NOTE | 2025-01-03 09:00 | ECG_ITS ---
Test Reason : OVERDOSE Blood Pressure : */* mmHG Vent. Rate : 91 BPM Atrial Rate : 91 BPM P-R Int : 140 ms QRS Dur : 92 ms QT Int : 408 ms P-R-T Axes : 64 57 38 degrees QTcB Int : 501 ms Poor data quality, interpretation may be adversely affected Sinus rhythm with Fusion complexes Anterior infarct , age undetermined Prolonged QT Abnormal ECG When compared with ECG of 17-May-2022 15:27, Fusion complexes are now Present Anterior infarct is now Present ST now depressed in Anterior leads QT has lengthened Referred By: Wu Ambrocio Electronically Signed By:
[2025-01-03] MEDS: diazePAM 5 MG TABLET 10 MG PO (09:07)
[2025-01-03 10:07] LABS: MANUAL DIFF FLAG NO
[2025-01-03 10:13] LABS: Basophils Absolute Auto 0.1 X10*3/uL (0.0-0.2); Basophils Percent Auto 0.4 % (0-2); Eosinophils Percent Auto 0.2 % (0-4); Hematocrit 39.7 % (42.0-52.0); Hemoglobin 13.7 g/dl (14.0-18.0); Imm Gran Abs Auto 0.07 X10*3/uL (0.00-0.03); Imm Gran Pct Auto 0.4 % (0.0-0.4); Lymphocytes Absolute Auto 1.7 X10*3/uL (1.2-4.9); Lymphocytes Percent Auto 9.5 % (20-40); Mean Corpuscular HGB Conc 34.5 g/dl (31.0-36.0); Mean Corpuscular Hemoglobin 29.7 pg (27.0-33.0); Mean Corpuscular Volume 86.1 fL (80.0-98.0); Mean Platelet Volume 11.3 fL (9.4-12.4); Monocytes Absolute Auto 1.3 X10*3/uL (0.1-1.2); Monocytes Percent Auto 7.3 % (2-11); Neutrophils Absolute Auto 14.4 x10*3/uL (2.0-8.3); Neutrophils Percent Auto 82.2 % (45-73); Platelet Count 255 X10*3/uL (160-400); Red Blood Count 4.61 X10*6/uL (4.60-5.80); Red Cell Distribution Width 11.5 % (11.0-16.0); White Blood Count 17.4 X10*3/uL (4.8-10.8)
[2025-01-03] MEDS: diazePAM 10 MG/2 ML CARTRIDGE IVPUSH (10:13)
[2025-01-03] MEDS: 0.9 % Sodium Chloride 1,000 ML 999 ML IV ×2 (10:13→11:39)
[2025-01-03 10:34] LABS: Alanine Aminotransferase 45 U/L (0-40); Albumin Level 4.7 g/dL (3.5-5.0); Alkaline Phosphatase 67 U/L (39-117); Anion Gap 13 (12-20); Aspartate Amino Transferase 70 U/L (5-37); Bilirubin Direct 0.2 mg/dL (0.0-0.5); Bilirubin Total 0.7 mg/dL (0.0-1.0); Blood Urea Nitrogen 27 mg/dL (9-16); C Reactive Protein 0.73 mg/dL (< or = 0.50); Carbon Dioxide 25 mmol/L (22-29); Chloride 104 mmol/L (96-108); Creatinine Clr Calc Pharmacy 86.5; Estimated Glomerular Filt Rate > 60; Ethanol < 10 mg/dL; Glucose Random 102 mg/dL (60-115); Magnesium 2.6 mg/dL (1.6-2.6); Potassium 3.8 mmol/L (3.3-5.1); Sodium 138 mmol/L (135-145); Total Protein 8.4 g/dL (6.5-8.0)
--- NOTE | 2025-01-03 11:44 | PC.NURSE ---
patient awake/alert, unable to sit still, IV inserted, labs drawn, ekg performed, pt offered po medication which he took, pt later given ivp medication which he was willing to take as well, IVF running per order, pt currently sleeping, rr equal/non labored, vitals remain stable, call wren within reach, plan of care ongoing
[2025-01-03] MEDS: Lactated Ringers 1,000 ML 999 ML IV (12:38)
[2025-01-03] MEDS: diazePAM 10 MG/2 ML CARTRIDGE 5 MG IVPUSH (12:44)
--- NOTE | 2025-01-03 12:51 | PC.NURSE ---
additional IV fluids hung per order, pt willingly medicated for continued restlessness/anxiety.
--- NOTE | 2025-01-03 13:57 | PC.NURSE ---
ivf continue to run slowly
--- NOTE | 2025-01-03 16:39 | MHC.EDTECH ---
This tech provided urine cup to patient for sample. Patient oriented to bathroom and aware that we require a urine sample.
--- NOTE | 2025-01-03 17:31 | MHC.EDTECH ---
Family member asked to use the patient restoom. Okayed by staff. This tech observed family member in patient bathroom, take something out of her bra that resembled a small foled white paper, and flush it down the toilet and then put another piece of paper back in her bra. Guest did not actually sit to use the toilet. Patient then escorted out by security to obtain phone. RN made aware of situation and I then approached security with my concern.
--- NOTE | 2025-01-03 17:33 | PC.NURSE ---
Security spoke with patients girlfriend upon girlfriend leaving pod to ask what she threw into toilet after visiting with patient. Per security girlfriend stated she was flushing the drugs that patient had on him. Patient provided security with 3 syringes and states they were the patients. Patient brought into bathroom and searched by male RN with nothing found on patient. 2 security searched patients room with no contraband found. Security informed girlfriend that she will not be allowed to visit for the rest of the day.
--- NOTE | 2025-01-03 17:38 | PC.NURSE ---
Following Pt's girlfriend being found with needles and possible disposal of an illegal substance in the bathroom, pt was brought to the bathroom to ensure he does not have any weapons or drugs on his person. TANK Chris stood outside of the bathroom while ITANK checked the patient in the bathroom for any drugs or weapons. Security was searching the room while this happened. Pt was explained we wanted to check him for his safety. Pt was a little agitated but complied. No drugs or weapons found on the patient.
[2025-01-03 18:39] LABS: Appearance Urine Clear; Color Urine Yellow; Glucose Urine UA Negative (Negative); Leukocyte Esterase Urine Negative (Negative); Nitrite Urine Negative (Negative); Specific Gravity - Urine >= 1.030 (1.005-1.025); UMIC TRIGGER UACC YES; Urine Blood Negative (Negative); Urine Ketones 15 mg/dL (Negative); Urine Protein 30 (1+) mg/dL (Neg-Trace)
[2025-01-03 18:50] LABS: Amphetamine Screen Urine Not Detected (Not Detect); Barbiturates, Urine Not Detected (Not Detect); Benzodiazepines Screen Urine POSITIVE (Not Detect); Buprenorphine Scr Positive (Not Detect); Cannabinoid Screen Urine POSITIVE (Not Detect); Cocaine Screen Urine POSITIVE (Not Detect); Fentanyl, urine POSITIVE (Not Detect); Methadone Screen, Urine Not Detected (Not Detect); Opiate Screen Urine POSITIVE (Not Detect); Oxycodone Screen Urine Not Detected (Not Detect); Phencyclidine Screen Urine Not Detected (Not Detect)
[2025-01-03 19:50] LABS: Bacteria Urine None Seen (None Seen); Hyaline Casts Urine 0-2 /LPF (0-2); RBC Urine 0-2 /HPF (0-2); Squamous Epithelial Cell Urine 0-2 /HPF (0-2); WBC Urine 0-5 /HPF (0-5)
[2025-01-03] MEDS: QUEtiapine Fumarate 100 MG TABLET PO (20:17)
[2025-01-03] MEDS: hydrOXYzine HCL 50 MG TABLET PO (20:17)
[2025-01-03] MEDS: cloNIDine HCL 0.2 MG TABLET PO (20:17)
[2025-01-03] MEDS: QUEtiapine Fumarate 50 MG TABLET PO (20:17)
[2025-01-03] MEDS: buPROPion HCL 75 MG TABLET 150 MG PO (20:17)
[2025-01-03] MEDS: hydrOXYzine HCL 25 MG TABLET PO (20:17)
--- NOTE | 2025-01-03 21:22 | PC.NURSE ---
patient appears to remain at rest presently respirations are even and unlabored appears in no distress
--- NOTE | 2025-01-04 05:14 | MHC.CARE ---
Patient's mother called in at 0510 to see how he was doing and to check the status of his evaluation.
--- NOTE | 2025-01-04 07:45 | PC.NURSE ---
Assumed care of patient at 0645, patient appears to be in no apparent distress this am, sleeping, respirations even and unlabored. Continue plan of care for CARE team follow up
[2025-01-04] MEDS: Naloxone HCl Nasal TAKE HOME 4 MG SPRAY 8 MG NOSTRILALT (10:07)
[2025-01-04 10:10] VITALS: BP 114/64; PULSE 79; RESP 18; TEMP 36.8; O2SAT 98
== END 2025-01-04 10:11 | disposition home or self-care (01) ==
PROVIDERS: Emergency Provider Emergency Medicine
DX: R41.0 Disorientation, unspecified (principal); F19.90 Other psychoactive substance use, unspecified, uncomplicated; R45.1 Restlessness and agitation; F14.10 Cocaine abuse, uncomplicated; B19.10 Unspecified viral hepatitis B without hepatic coma; Z79.899 Other long term (current) drug therapy
CPT/HCPCS: 36415; 80048; 80076; 80307; 81001; 82550; 83735; 85025; 86140; 93005; 96361; 96374; 96376; 99285; J3360; J7120; S9485

== ENCOUNTER 2025-06-27 03:04 | Emergency (ER) | payer MEDICAID, SELFPAY ==
[2025-06-27 03:10] VITALS: BP 138/94; PULSE 88; O2SAT 98
[2025-06-27 03:19] VITALS: BP 143/72; PULSE 97; RESP 20; TEMP 36.6; O2SAT 97; BMI 24.3
--- NOTE | 2025-06-27 03:52 | ED.GENADULT ---
HPI - General Adult General Chief complaint: ETOH/Substance Use Stated complaint: PD FOUND SCREAMING IN ALLEY,NO INJ,DRUGS EARLIER Time Seen by Provider: 06/27/25 03:09 Source: patient, EMS and police Mode of arrival: EMS Limitations: no limitations History of Present Illness ED Provider: Dr. Janeth Norman HPI narrative: 34-year-old male with a history of substance use disorder presenting by EMS after police were called to the street. Patient was reportedly screaming down an alley and some bystanders called for police assistance. Patient was found to be agitated, ?tweaking? but denied substance use to EMS. Patient does admit to me that he used cocaine yesterday. Admits that he bolus snorts and injects cocaine. Denies other illicit substance use though admits he has used methamphetamines in the past, last use was approximately 145 days ago. No reported illness otherwise. Denies suicidal or homicidal ideations. Denies visual or auditory hallucinations. No further information able to be obtained at this time. Related Data Home Medications ?Medication ?Instructions ?Recorded ?Confirmed bupropion HCl 75 mg tablet PO 01/03/25 clonidine HCl 0.1 mg tablet 0.1 mg PO TID 01/03/25 01/03/25 hydroxyzine pamoate 25 mg capsule PO 01/03/25 Allergies Allergy/AdvReac Type Severity Reaction Status Date / Time Penicillins Allergy Unknown Verified 06/27/25 03:21 Review of Systems Review of Systems: as per HPI, full review of systems performed and negative but for the above mentioned pertinent positives and negatives. [facility] Past Medical History Medical History Hepatitis B Hepatitis C antibody positive in blood Social History Social History Household Members: Other Housing: Homeless Do you presently have visiting nurse or other home services: No Comment: callie clark change to low fall risk Patient Tobacco Use Status: Current someday Tobacco user Substance Use Type: Heroin Advance Directives: No Advance Directives Information Provided: Yes Physical Exam ED Exam Exam: GENERAL: Anxious, agitated, uncontrolled movements. SKIN: Normal skin color for ethnicity, warm, dry, multiple skin excoriations of various degrees of healing, no crepitus, no petechiae, no blistering. HEENT: Normocephalic, atraumatic, no stridor, posterior oropharynx nonerythematous, poor [place] dentition, dry mucous membranes, EOMI. NECK: Soft, supple, full ROM, midline structures nontender, no step-offs, no deformities, no lymphadenopathy. CHEST: Heart regular tachycardia, no murmurs, symmetric chest rise and fall, no crepitus. PULMONARY: Clear to auscultation bilaterally, no labored breathing, no wheezes/rhales/rhonchi. ABDOMINAL: Soft, nondistended, nontender, positive bowel sounds in all quadrants. : Deferred. MUSCULOSKELETAL: Normal tone, full range of motion, no deformities, no peripheral edema. NEURO: Alert and oriented to person, CN II through XII intact, equal strength and sensation bilateral upper and lower extremities, no focal neurologic deficits. PSYCHIATRIC: Anxious affect, agitated, tangential speech, poor eye contact and psychomotor agitation. Vital Signs: Vital Signs - 24 hr 06/27/25 03:19 Temperature 97.8 F Pulse Rate 97 Respiratory Rate 20 Blood Pressure 143/72 H Pulse Oximetry 97 Oxygen Delivery Method Room Air BMI result Body Mass Index 24.3 Medications Administered Discontinued Medications Generic Name Dose Route Start Last Admin Trade Name Freq PRN Reason Stop Dose Admin Naloxone HCl 8 mg 06/27/25 03:53 06/27/25 04:03 Naloxone Hcl Nasal Take Home 4 Mg [place] NOSTRILALT 06/27/25 03:54 8 mg ONCE ONE Administration Medical Decision Making Medical Decision Making MDM Narrative: Patient presents with psychologic complaints, potential drug ingestion. Differential diagnosis includes drug intoxication, drug withdrawal, suicidal ideations, homicidal ideations, depression, anxiety, mood disorder, decompensated mental illnesses such as schizophrenia or bipolar disorder, medication noncompliance, among many others. On my exam, patient is coherent, speaking in full sentences though he is rather tangential in his thought process, he is able to tell me that he is in the emergency department and it is my opinion that he has capacity to make decisions. He has rather poor insight into his substance use disorder. Admits that he has a problem with ?opioids?. Does not think he has a problem with cocaine. Clinically, he appears intoxicated with some type of stimulant. Clinical picture favors methamphetamines though he says he has not used methamphetamines in over 145 days. He is ambulatory in the emergency department. Steady gait. Speaks with clear speech. He is requesting discharge. He does not want detox. We went over this at length and I encouraged him to return to the emergency department should he change his mind. He was provided with a Narcan kit, safe using kit, local resources for detox. Differential Diagnosis Differential Diagnoses: The differential diagnosis associated with the presentation includes (as above) Admission/Observation Consideration of admission/observation: Escalation of care including admission/observation considered Independent Historian Clinical information obtained from an independent historian. History obtained from or confirmed by: EMS External Record Review External record reviewed: Inpatient record Prescription Management I considered prescription management with: Other (narcan) Chronic Conditions Patient?s care impacted by: Other (VONDA) Social Determinants Patient?s care significantly limited by Social Determinants of Health including: Inadequate housing, Alcoholism and drug addiction in family, Problems related to primary support group and Other Social Determinant of Health Discharge Plan Discharge Clinical Impression: Cocaine abuse Patient Disposition: Home, Self-Care Instructions: Polysubstance Use Disorder (ED) Additional Instructions: Cocaine use disorder You were seen in our Emergency Department today for treatment of cocaine use disorder. You may experience feeling some withdrawal symptoms and this is normal. Please do not feel discouraged, it is a process. The nurse has reviewed with you where to follow up and what information to bring with you, to continue treatment. You also may have been given naloxone (narcan) to take home with you. This medication is used to potentially treat opiate overdose. If you decide you want to stop or cut down on how much you?re using, you can call or walk into our outpatient Addiction Treatment office: [facility] (M-F 9am-5p) [address] [place] [address], [phone] You may have been provided with safer injection?items, please take time to take care of YOU and your health. Use new supplies whenever possible to lessen the chances of infections and other illnesses.? ?If you need more supplies, please go [facility],? [address] [place] [address] OR you can call or text to coordinate delivery of safer supplies. You were also provided a list of several treatment providers in the area.? If you experience any worsening symptoms you cannot control please return to the ED or call 911. Please follow up at your next appointment. Things to look out for are fevers, chest pain, shortness of breath, severe pain, dizziness, fainting or any other concerns. Prescriptions: No Action clonidine HCl 0.1 mg tablet 0.1 mg PO TID bupropion HCl 75 mg tablet PO hydroxyzine pamoate 25 mg capsule PO Print Language: Citizen [place]
[2025-06-27] MEDS: Naloxone HCl Nasal TAKE HOME 4 MG SPRAY 8 MG NOSTRILALT (04:03)
--- NOTE | 2025-06-27 04:21 | PC.NURSE ---
pt found trying to remove things from sharps bin in room. not successful. pt given a safe injection kit, take home narcan and a list of detox facilities should he desire detox in the future
--- NOTE | 2025-06-27 04:26 | PC.NURSE ---
pt alert and oriented, restless but able to make decisions for self. pt not requesting hospital admission or detox. no SI/HI. no complaints at this time. would like to be discharged.
[2025-06-27 04:52] VITALS: BP 143/72; PULSE 97; RESP 20; TEMP 36.6; O2SAT 97
== END 2025-06-27 04:53 | disposition home or self-care (01) ==
PROVIDERS: Emergency Provider Emergency Medicine
DX: F14.10 Cocaine abuse, uncomplicated (principal); F17.200 Nicotine dependence, unspecified, uncomplicated; Z71.6 Tobacco abuse counseling
CPT/HCPCS: 99283